=== PATIENT | female | born 1990 | race Caucasian/White ===

== ENCOUNTER → 2018-12-31 13:40 | Outpatient (CLI) | payer SELFPAY ==
[2018-10-12 11:31] VITALS: BMI 25.7
[2018-12-31 17:26] LABS: Chlamydia Trachomatis by PCR Negative (Negative); Neisserai gonorrhoeae by PCR Negative (Negative); Probe Check PASS; Sample Adequacy Control PASS; Specimen Processing Control PASS
[2019-01-05 10:10] LABS: HPV Reflexed? NOT INDICATED
== END ==
PROVIDERS: Visit Provider Obstetrics & Gynecology
DX: Z12.4 Encounter for screening for malignant neoplasm of cervix (principal); Z11.3 Encounter for screening for infections with a predominantly sexual mode of transmission
CPT/HCPCS: 87491; 87591; 87624; 88175; G0145

== ENCOUNTER → 2019-01-14 | Outpatient (CLI) | payer SELFPAY ==
[2018-10-12 11:31] VITALS: BMI 25.7
--- NOTE | 2019-01-14 14:06 | US_ITS ---
STUDY: FIRST TRIMESTER OBSTETRICAL ULTRASOUND REASON FOR EXAM: Female, 28 years old. Gestational age LMP: TECHNIQUE: Transabdominal TECHNICAL QUALITY: Adequate. PRIOR ULTRASOUND: None. FINDINGS: There is visualization of a single gestational sac in a normal intrauterine position. The mean sac diameter (MSD) measures 3.43 cm, indicating an estimated gestational age (EGA) of 8 weeks, 6 days. The gestational sac shape is within normal limits. There is a visualized yolk sac. The yolk sac measures 5.8 mm. The placenta is non-visualized. There is visualization of a live embryo. The crown-rump length (CRL) measures 2 cm, indicating an estimated gestational age (EGA) of 8 weeks, 5 days. There is demonstrated cardiac activity with a heart rate of 169 bpm. The estimated gestation age (EGA) by LMP is 8 weeks, 1 days. The estimated date of delivery (DAMON) by LMP is August 25, 2019. The estimated gestation age (EGA) by US is 8 weeks, 6 days. The estimated date of delivery (DAMON) by US is August 20, 2019. The uterus measures 9.9 x 7.4 x 6.4 cm. There is no demonstrated uterine fibroid. The cervix is closed. Small subchorionic hemorrhage measuring 1.5 x 1.3 x 1.1 cm The right ovary measures 4.2 x 2.1 x 1.9 cm. There is no right ovarian cyst. There is no visualized right adnexal mass or complex lesion. The left ovary measures 3.2 x 2.8 x 3.2 cm. There is no left ovarian cyst. There is no visualized left adnexal mass or complex lesion. There is no fluid in the cul de sac. US/Init OB < 14Wks US IMPRESSION: Viable intrauterine gestation approximately 8-9 weeks gestational age. Small subchorionic hemorrhage Electronically Signed: Nilo Cortés MD at 16:08 EDT , Service support ,
== END | disposition home or self-care (01) ==
PROVIDERS: Family Provider Internal Medicine; PCP Internal Medicine; Referring Provider Obstetrics & Gynecology; Visit Provider Obstetrics & Gynecology
DX: Z34.81 Encounter for supervision of other normal pregnancy, first trimester (principal); N91.2 Amenorrhea, unspecified
CPT/HCPCS: 76801

== ENCOUNTER → 2019-02-18 | Outpatient (CLI) | payer SELFPAY ==
[2018-10-12 11:31] VITALS: BMI 25.7
[2019-02-18 10:45] LABS: Absolute Lymphocyte Count 1.66 X10^3/ul (0.83-4.51); Basophil# 0.01 X10^3/uL; Basophil% 0.1 % (0-1); Eosinophil# 0.08 X10^3/uL; Hematocrit 36.9 % (37-47); Hemoglobin 12.6 g/dl (12.0-15.0); Lymphocyte # 1.66 X10^3/ul (4.0); Lymphocyte % 20.3 % (19-41); Mean Corp Hgb Conc 34.1 g/gl (32-36); Mean Corpuscular Hgb 28.7 pg (27.0-32.0); Mean Corpuscular Volume 84.1 fL (81-99); Mean Platelet Vol. 9.6 fl (6.2-12.0); Monocyte# 0.41 X10^3/uL; Neutrophil % 73.4 % (47-70); Platelet Count 223 K/mm3 (150-450); RBC Distribution Width CV 13.3 % (11.6-14.6); RBC Distribution Width SD 40.7 fl (35.1-43.9); Red Blood Count 4.39 M/mm3 (4.2-5.4); White Blood Count 8.2 K/mm3 (4.4-11.0)
[2019-02-18 10:47] LABS: POSITIVE COUNT NO; POSITIVE DIFFERENTIAL NO; POSITIVE MORPHOLOGY NO
[2019-02-18 10:48] LABS: Color, Urine Yellow (Yellow); Glucose, Dipstick Normal (Normal); Ketone-Dipstick Negative (Negative); Leukocyte Esterase-Dipstick Negative /ul (Negative); Nitrite-Dipstick Negative (Negative); Occult Blood-Urine Negative /ul (Negative); Protein-Dipstick Negative (Negative); Urine Bilirubin Dipstick Negative (Negative); Urine Clarity Sl. Cloudy (Clear); Urine Urobilinogen Normal (Normal)
[2019-02-18 10:49] LABS: Color, Urine Yellow (Yellow); Glucose, Dipstick Normal (Normal); Ketone-Dipstick Negative (Negative); Leukocyte Esterase-Dipstick Negative /ul (Negative); Nitrite-Dipstick Negative (Negative); Occult Blood-Urine Negative /ul (Negative); Protein-Dipstick Negative (Negative); Urine Bilirubin Dipstick Negative (Negative); Urine Clarity Sl. Cloudy (Clear); Urine Urobilinogen Normal (Normal)
[2019-02-18 10:50] LABS: Basophil% 0.1 % (0-1); Hematocrit 36.9 % (37-47); Hemoglobin 12.6 g/dl (12.0-15.0); Lymphocyte % 20.3 % (19-41); Mean Corp Hgb Conc 34.1 g/gl (32-36); Mean Corpuscular Hgb 28.7 pg (27.0-32.0); Mean Corpuscular Volume 84.1 fL (81-99); Mean Platelet Vol. 9.6 fl (6.2-12.0); Neutrophil % 73.4 % (47-70); Platelet Count 223 K/mm3 (150-450); RBC Distribution Width CV 13.3 % (11.6-14.6); RBC Distribution Width SD 40.7 fl (35.1-43.9); Red Blood Count 4.39 M/mm3 (4.2-5.4); White Blood Count 8.2 K/mm3 (4.4-11.0)
[2019-02-18 10:51] LABS: Basophil# 0.01 X10^3/uL; Eosinophil# 0.08 X10^3/uL; Monocyte# 0.41 X10^3/uL
[2019-02-18 11:53] LABS: HIV - WCH Non-Reactive (Nonreactive); Rubella IgG 41.5 IU/mL
[2019-02-18 13:26] LABS: ALB/GLOB Ratio 0.7 RATIO (0.9-2.4); AST(SGOT) 18 U/L (15-37); Alanine Aminotransfer ALT/SGPT 18 U/L (13-56); Alkaline Phosphatase 36 U/L (45-117); Anion Gap 10 (5-15); BUN 12 mg/dL (7-18); BUN/Creat Ratio 19.7 RATIO (10-20); Bilirubin, Direct 0.08 mg/dL (0.00-0.30); Calcium,Total 8.4 mg/dL (8.5-10.1); Chloride 106 mmol/L (98-107); Cholesterol 200 mg/dL (200); Creatinine, Serum 0.61 mg/dL (0.55-1.02); EST Glomerular Filtration Rate 124 mL/min (>60); Est Glom Filt Rate - Afr Amer 150 mL/min (>60); Globulin 4.1 g/dL (2.2-4.2); Glucose 77 mg/dL (74-106); High Density Lipoprotein 91 mg/dL; LDH 190 U/L (84-246); Phosphorus 3.5 mg/dL (2.5-4.9); Protein, Total 7.1 g/dL (6.4-8.2); Sodium Level 139 mmol/L (136-145); Triglycerides 71 mg/dL; Uric Acid 3.5 mg/dL (2.6-6.0); Very Low Density Lipoprotein 14 mg/dL (5-40)
[2019-02-19 16:52] LABS: HEPATITIS B SURFACE AG Negative (Negative); Hep C Antibodies <0.1 s/co ratio (0.0-0.9)
[2019-02-20 01:45] LABS: Prenatal RPR NONREACTIVE (NONREACTIVE)
== END | disposition home or self-care (01) ==
PROVIDERS: Family Provider Internal Medicine; PCP Internal Medicine; Referring Provider Obstetrics & Gynecology; Visit Provider Obstetrics & Gynecology
DX: Z34.82 Encounter for supervision of other normal pregnancy, second trimester (principal); N39.0 Urinary tract infection, site not specified
CPT/HCPCS: 36415; 81002; 84443; 85025; 86703; 86762; 86803; 87077; 87086; 87088; 87186; 87340

== ENCOUNTER → 2019-05-29 10:00 | Outpatient (CLI) | payer SELFPAY ==
[2019-05-05 10:16] VITALS: BMI 25.7
[2019-05-29 10:51] LABS: Hematocrit 35.2 % (37-47); Hemoglobin 11.7 g/dL (12.0-15.0); Mean Corp Hgb Conc 33.2 g/dL (32-36); Mean Corpuscular Hgb 29.1 pg (27.0-32.0); Mean Corpuscular Volume 87.6 fL (81-99); Mean Platelet Vol. 10.3 fl (6.2-12.0); Platelet Count 226 K/mm3 (150-450); RBC Distribution Width CV 12.2 % (11.6-14.6); RBC Distribution Width SD 38.8 fl (35.1-43.9); Red Blood Count 4.02 M/mm3 (4.2-5.4); White Blood Count 8.7 K/mm3 (4.4-11.0)
[2019-05-29 11:15] LABS: Glucose Challenge Gest 1H 50g 109 mg/dL (70-140)
== END ==
PROVIDERS: Visit Provider Obstetrics & Gynecology
DX: Z34.83 Encounter for supervision of other normal pregnancy, third trimester (principal)
CPT/HCPCS: 36415; 82950; 85027; 86850

== ENCOUNTER → 2019-06-18 08:40 | Outpatient (CLI) | payer SELFPAY ==
[2019-05-05 10:16] VITALS: BMI 25.7
[2019-06-18 10:08] LABS: Homocysteine 3.6 umol/L (3.2-10.7)
== END ==
PROVIDERS: Visit Provider Obstetrics & Gynecology
DX: O99.419 Diseases of the circulatory system complicating pregnancy, unspecified trimester (principal); I87.1 Compression of vein; Z3A.00 Weeks of gestation of pregnancy not specified
CPT/HCPCS: 36415; 81240; 81241; 83090

== ENCOUNTER → 2019-07-16 14:00 | Outpatient (CLI) | payer SELFPAY ==
[2019-05-05 10:16] VITALS: BMI 25.7
--- NOTE | 2019-07-16 14:04 | VDLE_ITS ---
Reason For Study: R/O DVT Procedure LEFT Exam performed in department. GSV is normal. A preliminary report was called and/or faxed CFV is compressible, spontaneous, phasic, to [place]. competent, and demonstrates normal augmentation. FV is compressible, spontaneous, phasic, competent and demonstrates normal augmentation. POP V is compressible, spontaneous, phasic, competent and demonstrates normal augmentation. T/P Trunk is compressible. PTV is compressible. LT PerV is compressible. Interpretation Summary Deep veins of the left lower extremity are patent and compressible segmentally. There is no evidence of left lower extremity deep vein thrombosis. Valvular competence appears intact within the proximal deep venous system on the left . The left great saphenous vein appears patent and compressible segmentally. Ordering Physician: Jas Kemp Referring Physician: Allegra Potts M.D. Performed By: Luba Grimes RVT
== END ==
PROVIDERS: Family Provider Internal Medicine; PCP Internal Medicine; Referring Provider Obstetrics & Gynecology; Visit Provider Obstetrics & Gynecology
DX: Z34.83 Encounter for supervision of other normal pregnancy, third trimester (principal); M79.605 Pain in left leg
CPT/HCPCS: 93971

== ENCOUNTER 2019-08-21 22:44 | Inpatient (IN) | payer SELFPAY ==
[2019-05-05 10:16] VITALS: BMI 25.7
[2019-08-21 22:19] VITALS: BMI 31.5
[2019-08-21 22:40] LABS: ROM Internal Control Test YES-OK TO RESULT pt. (Internal QC)
[2019-08-21 22:41] LABS: ROM Patient Test POSITIVE (Negative)
--- NOTE | 2019-08-21 22:51 | HP.PCM_ITS ---
History and Physical Date of Admission: 08/21/19 [facility] [place] [facility] - H[facility]ORY AND PHYSICAL (08/21/2019) Name: NEGRITA NOLENIQUE OB Physician: PETER Windsor's Physician: PED HEALTH TEACHER ...................................................................... : 1990 Age: 29 Address: [address] [place] [address] Phone: H) [phone] (O) [phone] Insurance Carrier: Emergency Contact: SOLOMON PAYNE [phone] ...................................................................... Annabelle is a 29yo at 40w1d gestation by 8w6d US who presents to unit this evening c/o SROM of clear fluid at 1730; contractions started at 1900; she denies VB and states active FM; she is GBS positive in urine at beginning of ; she reports an anaphylactic reaction to amoxicillin as a child; blood type is O negative and she received Rhogam at 28 weeks; has been remarkable for May Thurner syndrome, placing her at approx 2-3% increased risk of DVT in ; she declined recommended anticoagulation therapy with Lovenox or heparin, but has been taking 81mg asa with this ; this evening she voices concerns that her first baby was born OP, after an extended time of , and she experienced a second degree tear; after discussion and being informed that approximately 80 percent of women will experience perineal lacerations with delivery and modalities that can be used to help prevent this, she voices a preference for a small episiotomy per this provider's judgement should the situation recur; she does understand that an episiotomy, if performed, will result in a controlled 2nd degree laceration; she initially wanted to avoid an epidural with this labor, but after extensive discussion and recommendation by this provide for Pitocin augmentation r/t GBS positive status with ruptured membranes, she agrees to slow Pitocin augmentation and may reconsider epidural. Final DAMON: 08/20/19 By Ultrasound: 8 weeks 6 days PARITY: (G-Total Pregnancies P-Fullterm,Premature,Induced AB,Spont AB, Ectopics, Multiple,Living) DAMON CONFIRMATION: By LMP: 11/18/18 Final DAMON: 08/20/19 BLOOD TYPE: AFP: 1 HR PG: GBS: Rublla titer (>10 immune)-- Hepatatis B jonathon AG-- CULTURES:-- Negative OB PROBLEM LIST: ALLERGIC to AMOXICILLIN and Shellfish Declines msAFP and CF testing GBS positive UTI this ABX in labor May Thurner syndrome. MFM consultation 2-3% chance DVT in . 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 O NEGATIVE RhoGAM at 28-29 wks Prefers NO epidural, if possible Pushed x 3-3/4 hrs with first delivery Saw Dr Richards for eval of L inguinal hernia Dr Richards unable to detect hernia... Significant varicosities. No intervention in Plans f/u with Dr Arnold re varicosities after . ALLERGIES: Amoxicillin Severe swelling Amoxicillin Swelling (non-specific) Erythromycin Anaphylaxis Shellfish Explosive diarrhea Shellfish Derived C. difficile toxin diarrhea MEDICATIONS: aspirin 81 mg chewable tablet 1 po daily for DVT prevention until 6 wk pp. 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[employer] Illicit Drug Use - denies use of street drugs Sexual Activity - Residence - lives with Place of - [place], [place] Hours Worked - 25 WK Spouse-Sig Other Name - Solomon Spouse-Sig Other Occupation - construction Spouse-Sig Other Phone No - [phone] Children Name(s) - Shayy '17 PRIOR DELIVERY HISTORY DEL DATE GEST LAB WT LB WT OZ TYPE ANES LABOR TX 19 Jun 09 40 12 6 12 Vacuu Epidural No ANTEPARTUM FLOW CHART VISIT RTC FU F F IA U U DATE WK MD WKS HT PN HR M SS BP ED WT IA GL D EF ST __ ____ ___ __ __ ___ __ __ __ ___ __ __ __ ___ __ Jul JMW 6 37 V + + 112/66 sl 183 - - S Jul JMW 1 38 V + + 112/64 sl 181 - - S Jul JMW 1 37 + + 108/68 sl 181 - - 2 50 -2 Jul JMW 1 36 + + 122/74 - 181 - - Jun JMW 1 35 V + + 116/70 tr 177 - - 1 50 -2 Jun JMW 1 35 + + 106/68 sl 178 - - 08 Jun ELB 2 32 - + + 110/80 0 175 - - 24 May 30 JMW 2 32 + + 114/70 tr 173 - - 06 Jun 20 ELB 2 28 - + + 102/68 tr 166 tr - May 15 JMW 5 24 + + 122/60 0 163 - - 05 Apr 10 JMW 4 20 + + 90/70 0 155 - - Mar 08 JMW 4 16 + ? 122/74 0 153 - - February 02 JMW 4 13 + + 100/80 0 148 - - ANTEPARTUM NOTE(S): Aug 18 2019: Doing Well Aug 12 2019: Ctxs-occas, Good FM Aug 04 2019: Ctxs-occas, Good FM Jul 30 2019: doing well, GBS was positive in urine, declines cervix check Jul 23 2019: Feeling Well,Good FM LARC Form signed Jul 14 2019: see progress note, check right calf doppler Jun 30 2019: feeling well. Jun 16 2019: Feeling Well,Good FM, check clotting labs May 29 2019: CBC,OGCT,Antibody Today,Rhogam Today Apr 28 2019: Glucola/Instructions Given,Good FM Mar 27 2019: feeling well. Questions about inguinal hernia. Mar 11 2019: Declines AFP,Feels Well Feb 18 2019: see note COMPREHENSIVE ANTEPARTUM NOTE(S): Aug 18 2019: GBS Positive on urine culture this . no vaginal culture GBS done. Plan tx in labor. EB Aug 18 2019: As per Dr Kemp Annabelle is sched for Induction with Pit and AROM 08/24/19 at [facility] per Dr Kemp at 7am. Procedure reviewed and consents signed and faxed with antepartum chart. Pt has pre-registered and will call 2hrs prior to induction to verify. JT Aug 13 2019: Annabelle calling to ask many questions about an induction. States this was discussed at her last visit w/you. All questions answered. Advised to pre-register, so this is already done. Asking if she needs an appt prior to scheduling this? YES, Dr Kemp will review his choice of induction and will discuss all at that visit, will need a vag. exam, consent needs signed, and will need scheduled then in OB. She has an appt to see you on Saturday. Jul 14 2019: Pt presents for her PNV. She notes pain in her left calf for the past3-4days and d/t her hx of severe vericosities in her Lt leg she is concerned about a clot. Order given for a Left Leg doppler for [facility]. JT Jun 30 2019: Inherited thrombophilia panel: No Factor V mutation. No factor II mutation. positive for MERON-1 Gene Polymorphism Homocysteine level WNL. Prothrombin activity WNL. she is on baby ASA daily. [facility] consult obtained prior. Results to be sent to [facility] re whether or not to start Lovenox. Continues baby ASA daily RhNeg and asking if her daughter's rh positive blood type caused any of this. Advised not RTO in 2 wk fo PNV EB Jun 01 2019: Late entry from date of her 28 wk labs: pt with presumed hernia at L groin but actually went away after . Dx by Dr. Richards with May Thurner's Syndrome. which is a varicose v at the iliac crest due to and pressure at the groin. She is wondering if this puts her at higher risk of DVT? Advised will check into this, but no problems with her prior / delivery. Reviewed s/sx of DVT with Annabelle. EB [facility] online information: May-Thurner syndrome (MTS) is caused when the left iliac vein is compressed by the right iliac artery, which increases the risk of deep vein thrombosis (DVT) in the left extremity. DVT is a blood clot that may partially or completely block blood flow through the vein. Refer to [facility]. May 29 2019: Annabelle presents here today for PNV with CBC,OGCT and Antibody Screen drawn today. Rhogam given via undersigned without problems. Reports she continues with bulging varicosities mostly on the (L) leg and vaginal area. JOHN May 05 2019: Saw Dr Richards for eval of L inguinal hernia. Dr Richards unable to detect hernia... But pt with significant varicosities. No intervention in Plans f/u with Dr Arnold re varicosities after . EB Feb 18 2019: Annabelle is being seen for PNV. Pt is concerned she has a sinus infection. Pt states sinus issues have been going around her family, as well as her daughter possibly having infection. She states she has green/yellow snot when she wakes up and goes to bed and wakes up with sore throat. She was wondeirng she needed to go to PCP. As well as having pressure in vagina which is same feeling before getting . Long dip shows trs blood, 6.5 pH, specific gravity 1.025, all others negative. C and S added to NOB urine. AM Feb 18 2019: Annabelle is here for her NOB visit at 13 w 6 d, she is a with an DAMON of 08/20/2019. PNV with Dr. Kemp completed prior to NOB visit, and her labs were collected this morning. Office practice patterns reviewed. Emergencies/danger signs to report, round ligament pain, reporting s/s of a UTI, and common OTC medications approved/no approved of use during reviewed. She and her , Solomon, have a young daughter at home who will be 2 in May; her daughter was delivered with vac assist after a second stage of 3-3/4 hrs. GDM - Glyburide with first . Past history updated. Delivery at [facility] Is planned, she sates that she prefers NOT to have an epidural, but is not adverse to having one as needed, she will breastfeed. States that she is feeling pretty well overall, and that nausea comes and goes. Reviewed measure sthat may help nausea, including small frequent meals with protein included throughout the day, and adequate water hydration of at least one gallon per 24 hrs. She takes an OTC vitamin that contains DHA, and tolerates this well. Annabelle is a non-smoker, and denies use of drugs or ETOH. Genetic Screening form completed. MSAFP and CF testing declined, consent signed as such. She has a hx of a L5 fx in 2016. She has Psoriasis, and uses Hydrocortisone cream prn for same. She works out regularly several times a week, reviewed guidelines for exercise during . Kegel exercises reviewed. Lifting restrictions discussed. Dietary and water needs reinforced, including recommended weight gain, caloric needs, limiting empty calories, and limiting caffeine to one cup a day. Printed guide for food safety during provided with review. Annabelle states that she understands all information provided during NOB visit, and has no questions following same. AW New Apr 11 2019: GC and chlamydia NEG. EB Dec 31 2018: Annabelle presents here today for Missed Menses appointment. 28 y.o. G 2 P 1 non-smoker with regular menses and LMP of 11-18-18 lasting her average of 3-4 days with positive UPT today in our Office. Presents at 6 weeks 2 days with an approximate DAMON of 08-25-19. Denies spotting/bleeding thus far in . Reports having nausea and tender breasts. History of all normal pap screenings since 2011 with last in 2017. Medication list up-dated and currently taking an OTC Vitamin with [employer] noted. JOHN Dec 31 2019: ok REVIEW OF SYSTEMS: GENERAL - Denies fever, or chills SKIN - Denies rash, new skin lesions, or change in moles EYES - Denies blurred vision, or change in visual acuity EARS - Denies ear pain, or difficulty hearing NOSE - Denies nasal congestion, discharge, or bleeding MOUTH - Denies sore throat, or difficulty swallowing NECK - Denies pain or swelling RESPIRATORY - Denies shortness of breath, cough, wheezing CARDIOVASCULAR - Denies palpitations, chest pain, orthopnea, PND, peripheral edema, syncope or claudication GASTROINTESTINAL - Denies nausea, vomiting, diarrhea, constipation, Denies abdominal pain, melena and or bright red blood GENITOURINARY - Denies dysuria, frequency of urination, urgency, or hesitancy MUSCULOSKELETAL - Denies joint or muscle pain, or back pain NEUROLOGICAL - Denies localized numbness, weakness, or tingling PSYCHIATRIC - Denies depression, anxiety, substance abuse or suicide attempts ENDOCRINE - Denies heat or cold intolerance, weight loss or gain, increasing thirst HEMATO-IMMUNOLOGIC - Denies easy bruising, bleeding, oral ulcerations or recurrent infections GENETICS SCREENING: Age 35+ years: No Thalassemia: No Neural Tube Defect: No Down Syndrome: No KADEN-SACHS: No Sickle Cell Disease: No Hemophilia: No Musc. Dystrophy: No Cystic Fibrosis: No-declines screening Ray Chorea: No Mental Retardation: No Fragile X: No Other genetic: No Other defects: No SABs/still births: No Drugs since LMP: No INFECTION HISTORY: High risk AIDS: No High risk Hepatitis: No Exposed to TB: No Exposed to Herpes: No Rash/viral illness since LMP: No History of STD: No MENSTRUAL HISTORY: *Menses Amount/Duration: 4-5 DAYSMenses Regularity: RegularFrequency: 28Menarche (Age Onset): 11* PAST SUMMARY: PARITY: 1. Total Pregnancies............ 2 2. Full Term Pregnancies........ 1 3. Premature.................... 0 4. Abortions - Induced.......... 0 5. Abortions - Spontaneous...... 0 6. Ectopics..................... 0 7. Multiple Births.............. 0 8. Living Children.............. 1 PAST #1: Date of :.................. 06/11/17 Gestation Weeks:................ 40 Length of labor(hours):......... 12 Sex:............................ F Weight-lbs:............... 6 Weight-oz:................ 12 Type of Delivery:............... Vacuum Type of Anesthesia:............. Epidural Place of Delivery:.............. [facility] Treatment of Labor?:.... No Comment: PIT AUG, 3 H 45 M 2ND STAGE Labs for : ANNABELLE NOLEN since 11/23/2018 ORDER DATEIN DESCRIPTION VALUE UNITS RANGE A+ COMMENT (ROM) RUPTURE OF MEMBRANES 08/21/19 NOTE Original Ordering Provider: Velasquez Kemp ROM POSITIVE Negative H Amniotic fluid present indicates rupture of Membranes. RESULTS CALLED TO HUMERA RUVALCABA 08/21/19 2240 Breanna Otero. REPORT READ BACK BY MEB. VENOUS DUPLEX LOWER EXTREMITY 07/16/19 [facility] [address] [place] [address] Venous Duplex US, Unilateral 07/16/19 1512 MR#: [id number] Acct: [id number] Name: ANNABELLE NOLEN Rep #: [id number] : 1990 28 From: Mauricio Arnold MD Attending Dr: Velasquez Kemp MD Status: REG CLI Ordering Dr: Velasquez Kemp MD Date: 07/16/19 Location: [facility] Sex: F C Admitted: w Reason For Study: R/O DVT Procedure LEFT Exam performed in department. GSV is normal. A preliminary report was called and/or faxed CFV is compressible, spontaneous, phasic, to Justo. competent, and demonstrates normal augmentation. FV is compressible, spontaneous, phasic, competent and demonstrates normal augmentation. POP V is compressible, spontaneous, phasic, competent and demonstrates normal augmentation. T/P Trunk is compressible. PTV is compressible. LT PerV is compressible. Interpretation Summary Deep veins of the left lower extremity are patent and compressible segmentally. There is no evidence of left lower extremity deep vein thrombosis. Valvular competence appears intact within the proximal deep venous system on the left . The left great saphenous vein appears patent and compressible segmentally. Ordering Physician: Velasquez Kemp Referring Physician: Allegra Potts M.D. Performed By: Luba Grimes Melvi w 07/16/191941 Date Mauricio Arnold MD CC: Velasquez Kemp MD; Allegra Potts DO Date Dictated: 07/16/191511 Date Transcribed: 07/16/191941 Loader Engineer: Signed Reviewed by VELASQUEZ FACT V LEIDEN MUTATION 06/18/19 NOTE Original Ordering Provider: Elsie Love FACTOR V LEIDEN . Result: Negative (no mutation found) Factor V Leiden is a specific mutation (R506Q) in the factor V gene that is associated with an increased risk of venous thrombosis. Factor V Leiden is more resistant to inactivation by activated protein C. As a result, factor V persists in the circulation leading to a mild hyper- coagulable state. The Leiden mutation accounts for 90% - 95% of APC resistance. Factor V Leiden has been reported in patients with deep vein thrombosis, pulmonary embolus, central retinal vein occlusion, cerebral sinus thrombosis and hepatic vein thrombosis. Other risk factors to be considered in the workup for venous thrombosis include the [id number] mutation in the factor II (prothrombin) gene, protein S and C deficiency, and antithrombin deficiencies. Anticardiolipin antibody and lupus anticoagulant analysis may be appropriate for certain patients, as well as homocysteine levels. Contact your local [facility] for information on how to order additional testing if desired. Genetic counselors are available for health care providers to discuss results at [phone] Methodology: DNA analysis of the Factor V gene was performed by allele- specific PCR. The diagnostic sensitivity and specificity is >99% for both. Molecular-based testing is highly accurate, but as in any laboratory test, diagnostic errors may occur. All test results must be combined with clinical information for the most accurate interpretation. This test was developed and its performance characteristics determined by [facility]. It has not been cleared or approved by the Food and Drug Administration. References: Marissa Mack (1996). Clin Lab Med 16:169-186. Queenie Tran, PhD, [facility] Alexandra Mills, PhD, [facility] Tameka Dorantes M.S., PhD, [facility] Margaret Roberson, PhD, [facility] Bridgette Finley, PhD, FAC Abhay Castro PhD, [facility] Reviewed by ELSIE FACTOR II, DNA ANALYSIS 06/18/19 NOTE Original Ordering Provider: Elsie Love FACTOR II,DNA . NEGATIVE No mutation identified. Comment: A point mutation ([id number]) in the factor II (prothrombin) gene is the second most common cause of inherited thrombophilia. The incidence of this mutation in the [place] population is about 2% and in the population it is approximately 0.5%. This mutation is rare in the and population. Being heterozygous for a prothrombin mutation increases the risk for developing venous thrombosis about 2 to 3 times above the general population risk. Being homozygous for the prothrombin gene mutation increases the relative risk for venous thrombosis further, although it is not yet known how much further the risk is increased. In women heterozygous for the prothrombin gene mutation, the use of estrogen containing oral contraceptives increases the relative risk of venous thrombosis about 16 times and the risk of developing cerebral thrombosis is also significantly increased. In the prothrombin gene mutation increases risk for venous thrombosis and may increase risk for stillbirth, placental abruption, pre-eclampsia and growth restriction. If the patient possesses two or more congenital or acquired thrombophilic risk factors, the risk for thrombosis may rise to more than the sum of the risk ratios for the individual mutations. This assay detects only the prothrombin [id number] mutation and does not measure genetic abnormalities elsewhere in the genome. Other thrombotic risk factors may be pursued through systematic clinical laboratory analysis. These factors include the R506Q (Leiden) mutation in the Factor V gene, plasma homocysteine levels, as well as testing for deficiencies of antithrombin III, protein C and protein S. Genetic Counselors are available for health care providers to discuss results at [phone]). Methodology: DNA analysis of the Factor II gene was performed by PCR amplification followed by restriction analysis. The diagnostic sensitivity is >99% for both. All the tests must be combined with clinical information for the most accurate interpretation. Molecular-based testing is highly accurate, but as in any laboratory test, diagnostic errors may occur. This test was developed and its performance characteristics determined by [facility]. It has not been cleared or approved by the Food and Drug Administration. Deepikat SR, et al. Blood. 1996; 88:0518-9124. Soy SOSA. Circulation. 2004; 110:e15-e18. Angela I, et al. Arterioscler Thromb Vasc Biol. 1999; 19:700-703. Queenie Tran, PhD, FAC Alexandra Mills, PhD, FAC Cynthia RandhawaSEvangelist, PhD, FAC Margaret Roberson, PhD, FAC Bridgette Finley, PhD, [facility] Abhay Castro, PhD, [facility] Performed at: [facility] [place], [place] [id number] Line Staker: Miki Chase MD, Phone: [phone] Reviewed by ELSIE [facility] PROCEDURE 2 06/18/19 NOTE Original Ordering Provider: Elsie Love [facility] LAB TEST 2 TEST RESULT UNITS REF INTERVAL MERON-1 Gene Polymorphism MERON-1 Locus 4G/5G Polymorphism Patient DNA was evaluated for the MERON-1 4G/5G promoter polymorphism, which is a single base pair guanine (4G/5G) deletion/insertion polymorphism, using polymerase chain reaction (PCR) technology and restriction fragment length polymorphism (RFLP). 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 Interpretation This individual has one copy of the 4G allele and one copy of the 5G allele, also known as the 4G/5G genotype of the plasminogen activator inhibitor type 1 (MERON-1) gene. The 4G/5G genotype is associated with the intermediate MERON-1 activity and antigen levels compared to those individuals that have either the 4G/4G genotype with the highest MERON levels or 5G/5G genotype with the lowest MERON levels. Elevated MERON-1 levels are associated with an increased risk of coronary artery disease, venous thromboembolic disease and possibly complications of such as recurrent . Comments Simultaneous Risks: If a patient possesses two or more congenital or acquired risk factors, the risk of disease may rise to more than the sum of the risk ratios for the individual risk factors. For instance, a combination of the 4G/4G genotype and the insulin resistance syndrome may confer an increase in cardiovascular disease risk over that conferred by the presence of an isolated MERON-1 4G/4G polymorphism. Recommendations for Genetic Counseling: The MERON-1 4G allele is an inherited characteristic. If the polymorphism is present in a heterozygous or homozygous fashion, we recommend that the patient and their family consider genetic counseling to obtain additional information on inheritance and to identify other family members at risk. Testing Characteristics: Genetic testing by PCR provides exceptionally high sensitivity and specificity. Incorrect genotyping results can be caused by rare polymorphisms in primer binding sites and to misidentification of specimens by collectors or laboratory personnel. This assay analyzes only the MERON 4G/5G locus and does not measure genetic abnormalities elsewhere in the genome. This test was developed and its performance characteristics determined by [facility]. It has not been cleared or approved by the Food and Drug Administration. References: Jamin Lynch. Thromb Haemost. 2003;90:1061.; Varinder. Clin Chem. 2003;49:1081.; Wm et al. NEJM. 2000;342:1792.; Myra M et al. Arterioscl Thromb and Vasc Bio. 1998;18:152. TESTING PERFORMED AT [facility]. ORIGINAL REPORT ON FILE IN LAB CONTAINS ADDITIONAL TEST SITE INFORMATION. Reviewed by ELSIE [facility] LAB PROCEDURE 06/18/19 NOTE Original Ordering Provider: Elsie TRAN LAB TEST TEST RESULT LIMITS Antithrombin Activity 97 % 75 - 135 Direct Xa inhibitor anticoagulants such as rivaroxaban, apixaban and edoxaban will lead to spuriously elevated antithrombin activity levels possibly masking a deficiency. [facility]. ORIGINAL REPORT ON FILE IN LAB CONTAINS ADDITIONAL TEST SITE INFORMATION. Reviewed by ELSIE HOMOCYSTEINE 06/18/19 NOTE Original Ordering Provider: Elsie Love HOMOCYSTEINE 3.6 umol/L 3.2-10.7 Reviewed by ELSIE ANTIBODY SCREEN 05/29/19 [facility]~[address] [place], [address]~ ANTIBODY SCREEN NEGATIVE N Reviewed by VELASQUEZ GLUCOSE CHALLENGE GEST 1H 50G 05/29/19 NOTE Original Ordering Provider: Velasquez Kemp GLU GEST 50G 1H 109 mg/dL 70-140 Reviewed by VELASQUEZ CBC-COMPLETE BLOOD CNT NO DIFF 05/29/19 NOTE Original Ordering Provider: Velasquez Kemp WBC 8.7 K/mm3 4.4-11.0 RBC 4.02 M/mm3 4.2-5.4 L HGB 11.7 g/dL 12.0-15.0 L HCT 35.2 % 37-47 L MCV 87.6 fL 81-99 MCH 29.1 pg 27.0-32.0 MCHC 33.2 g/dL 32-36 RDW CV 12.2 % 11.6-14.6 RDW SDw 38.8 fl 35.1-43.9 PLT 226 K/mm3 150-450 MPV 10.3 fl 6.2-12.0 Reviewed by VELASQUEZ SURGERY VISIT REPORT 05/05/19 [facility] [address] [place], [place] [address] OFFICE VISIT Date of Service: 05/05/19 MR#: [id number] Acct: [id number] Name: ANNABELLE NOLEN Rep #: [id number] : 1990 Provider: Zen Richards MD Age/Sex: 28/F Location: [facility] Status: Signed Intake Vital Signs05/05/19 Body Mass Index (BMI) 25.7 05/05/19 Blood Pressure 124/75 H 05/05/19 Blood Pressure Location Rt brachial Intake Visit Reasons: l inguinal hernia/wants to discuss/ now Chief Complaint: Sinus Care Specialist Required: No Is patient in pain?: No Allergies amoxicillin Allergy (Verified 05/05/19 10:14) Swelling Medications w [id number]-wdyr-[id number]-omega 3-fat com #1 27 mg-1 mg-300 mg capsule cap PO DAILY cap 05/05/19 [History] PFSH Medical History Severe headache (Acute) Severe headache (Acute) Surgical History History of tonsillectomy (Acute) Family History (Updated 05/05/19 @ 10:13 by Marga Miller) Grandmother Cancer skin Grandfather Diabetes CVA (cerebral vascular accident) Father Heart disease Hypertension Social History (Updated 05/05/19 @ 10:39 by Zen Richards MD) Smoking Status: Never smoker alcohol intake: never substance use type: does not use w HPI HPI HPI: ANNABELLE NOLEN, is a 28 F who presents to the office today for surgical consultation regarding a suspected left inguinal hernia. She has been evaluated by Dr. Velasquez Kemp and Dr King although she is 25 weeks was felt that getting surgical consultation at this stage would be appropriate. This is her second . She states that she first noticed it during her first and immediately after delivery it seemed to resolve. w She provides additional information that she has always had more exuberant varicosities of her left lower extremity. She has never had DVT. She is not on an anticoagulant. Only previous surgery was tonsillectomy and adenoidectomy. She does vigorously exercise. She is limiting that to some degree during her . HPI HPI HPI: ANNABELLE NOLEN, is a 28 F who presents to the office today for w ROS General General: No weight change, appetite, fatigue, colon cancer, breast cancer or weakness HEENT HEENT: No difficulty swallowing, eye injury, eye surgery, swollen glands or hoarseness Endo Endocrine: No thyroid disease, diabetes mellitus, thyroid cancer, Hair loss, heat intolerance or cold intolerance Skin Skin: No rash or changing moles Breast Breast: No left breast lump, right breast lump, nipple discharge, breast pain, abnormal mammogram, abnormal US or breast enlargement Musc Musculoskeletal: Yes back problems; no arthritis, rheumatoid arthritis, gout or joint pain Cardio Cardiovascular: No murmur, pacemaker, heart disease, atrial fibrillation, high blood pressure, heart attack, heart stent, palpitations, shortness of breat with exertion or chest pain Psych Psychiatric: No depression, anxiety or hearing voices Resp Respiratory: No shortness of breath, No sleep apnea, No cough, No COPD, No asthma, No emphysema, No wheezing Gastro Gastrointestinal: No abdominal pain, No nausea or vomiting, No diarrhea, No constipation, No blood in stool, Yes acid reflux, Yes hemorrhoids, No ulcers, No gallbladder problem, No black,tarry stools Mario Hematologic: No blood thinners, No blood disorders, No bleeding, No anemia, No blood clots Neuro Neurologic: No system reviewed and no additional complaints, except as docu, No as per HPI, No abnormal walking, No abnormal hearing, No abnormal movements, No abnormal s peech, No behavioral changes, No burning sensations, No confusion, No seizure-like activity, No unsteadiness, No dizziness, No localized weakness, No frequent falls, No headache(s), No lack of coordination, No loss of vision, No memory loss, No numbness, No other visual disturbances, No radiating pain, No restless legs, No sensory deficit, No fainting, No tingling, No tremor(s), No weakness, No other Exam Chest Breast Palpation: No nipple discharge Cardio Heart Sounds: no murmurs GI Other: Patient is gravid with uterus up to the level of the umbilicus. Left groin has a ballotable mass. It is most noticeable with the patient upright. She has significant varicosities of the left vulvar and thigh area When she is supine this area has decompressed. Her inguinal floor to palpation appears solid Assessment AND Plan Problems 1. May-Thurner syndrome I87.1 Plan 28-year-old female who is 25 weeks . I believe that she has symptomatic varicosities of her left lower extremity and by history based upon her presentation involving the left lower extremity I am concerned that she may have May Thurner syndrome. I am not clinically detecting a left inguinal hernia At this point I do not believe that she requires any urgent surgical intervention. I have described my suspicion to her. Leave that she has an inguinal hernia. The patient is very much familiar with Dr. Mauricio Arnold. She plans to follow-up with him and I believe that this would be appropriate. w CC: Dr. King and Dr Velasquez Richards, M.D., F.A.C.S. Medications New: Coding Level of Care Code Off vis,new,level 2 Diagnoses May-Thurner syndrome I87.1 w 05/05/19 1039 Date Zen Richards MD Cosign Signature: Date (if applicable) CC: Flaca King MD; Velasquez Kmep MD Reviewed by ELSIE EMPLOYEE PROFILE 02/18/19 NOTE Original Ordering Provider: EMPLOYEE [facility] GLU 77 mg/dL 74-106 Please note revised GLUCOSE reference range effective 10/25/2017. BUN 12 mg/dL 7-18 CREAT,SERUM 0.61 mg/dL 0.55-1.02 The validity of the calculated GFR AND GFRAA in patients over 70 years has not been determined. Clinical correlation is essential. EST GFR 124 mL/min >60 Non- GFR Calc EST GFR - AA 150 mL/min >60 GFR Calc BUN/CRE 19.7 RATIO 10-20 URIC 3.5 mg/dL 2.6-6.0 The drugs N-Acetylcysteine and Metamizole may falsely depress this assay. T PROT 7.1 g/dL 6.4-8.2 ALB 3.0 g/dL 3.2-5.0 Lw GLOB 4.1 g/dL 2.2-4.2 A/G 0.7 RATIO 0.9-2.4 L CA 8.4 mg/dL 8.5-10.1 L PHOS 3.5 mg/dL 2.5-4.9 AST 18 U/L 15-37 ALK P 36 U/L 45-117 L ALT 18 U/L 13-56 T BILI 0.40 mg/dL 0.20-1.00 D BILI 0.08 mg/dL 0.00-0.30 w CHOL 200 mg/dL 200 <200 mg/dL Desirable 200-240 mg/dL Borderline >240 mg/dL High Risk TRIG 71 mg/dL The drugs N-Acetylcysteine and Metamizole may falsely depress this assay. Serum Triglycerides Reference Interval Normal <150 mg/dL Borderline high 150 - 199 mg/dL High 200 - 499 mg/dL Very High > or = 500 mg/dL NA 139 mmol/L 136-145 K 4.0 mmol/L 3.5-5.1 CL 106 mmol/L 98-107 CO2 23.0 mmol/L 21.0-32.0 GAP 10 5-15 HDL 91 mg/dL The drugs N-Acetylcysteine and Metamizole may falsely depress this assay. Reference Range HDL <40 mg/dL Low HDL Cholesterol HDL >or= 60 mg/dL High HDL Cholesterol CHOL:HDL 2.20 LDL 95 mg/dL 0-130 VLDL 14 mg/dL 5-40 LDH 190 U/L 84-246 Reviewed by VELASQUEZ LOUISE, EMPLOYEE 02/18/19 NOTE Original Ordering Provider: EMPLOYEE HEALTH WBC 8.2 K/mm3 4.4-11.0 RBC 4.39 M/mm3 4.2-5.4 HGB 12.6 g/dl 12.0-15.0 HCT 36.9 % 37-47 L MCV 84.1 fL 81-99 MCH 28.7 pg 27.0-32.0 MCHC 34.1 g/gl 32-36 RDW CV 13.3 % 11.6-14.6 RDW SD 40.7 fl 35.1-43.9 PLT 223 K/mm3 150-450 MPV 9.6 fl 6.2-12.0 NEUT% 73.4 % 47-70 H LY% 20.3 % 19-41 MONO% 5.0 % 0-10 EO% 1.0 % 0-5 BASO% 0.1 % 0-1 IM GRAN % 0.200 % 0.0-0.9 IG% - Immature Granulocytes (promyelocytes, myelocytes and metamyelocytes) > 1% indicates that a LEFT SHIFT is Present. ABSOLUTE NEUT 6.0 X10 3/uL 2.0-7.7 ABSOLUTE LYMPH 1.70 X10 3/ul 0.83-4.51 Reviewed by VELASQUEZ URINALYSIS, EMPLOYEE 02/18/19 NOTE Original Ordering Provider: EMPLOYEE HEALTH COLOR Yellow Yellow CLARITY Sl. Cloudy Clear GLUCOSE, UR Normal mg/dl Normal BILIRUBIN URINE Negative mg/dL Negative KETONE UR Negative mg/dl Negative SP.GR. DIPSTX 1.010 1.002-1.030 PH UR 7.0 5.0 - 8.0 PROT DIPSTX Negative mg/dl Negative UROBILI Normal mg/dl Normal NITRITE UR Negative Negative OCCULT BLOOD-UR Negative /ul Negative LEUK ESTERASE Negative /ul Negative Reviewed by VELASQUEZ CULTURE, URINE 02/18/19 NOTE Original Ordering Provider: Velasquez Kemp PLEASE RUN ON URINE IN MAIN LAB. Urine Culture ORGANISM 1: Streptococcus agalactiae (B) [place] Count 11,000-25,000 Streptococcus agalactiae (B): REACTION Ampicillin $ <=0.25 S Benzylpenicillin NF <=0.06 S Ceftriaxone $ <=0.12 S Clindamycin $$ <=0.25 S Inducable Clindamycin Resistan NEG Linezolid $$$$ <=2 S Vancomycin $ 0.5 S (NF) indicates non-formulary drug at [facility]. Approval by Infectious Disease Specialist required before non-formulary drugs may be ordered and/or dispensed. * CLSI guidelines does not recommend testing of cephalosporins. This interpretation is deduced from Beta-lactam/penicillin results. Reviewed by VELASQUEZ Reviewed by VELASQUEZ RPRw 02/18/19 NOTE Original Ordering Provider: Velasquez Kemp RPR NONREACTIVE NONREACTIVE Reviewed by VELASQUEZ HEPATITIS C ANTIBODIES 02/18/19 NOTE Original Ordering Provider: Velasquez Kemp HEP C AB <0.1 s/co ratio 0.0-0.9 Negative: < 0.8 Indeterminate: 0.8 - 0.9 Positive: > 0.9 The CDC recommends that a positive HCV antibody result be followed up with a HCV Nucleic Acid Amplification test (763438). Reviewed by VELASQUEZ HEPATITIS B SURFACE AG 02/18/19 NOTE Original Ordering Provider: Velasquez Kemp HB SURF AG Negative Negative Performed at: [address] [id number] Line Staker: Mark Green PhD, Phone: [phone] Reviewed by VELASQUEZ HIV - [facility] 02/18/19 NOTE Original Ordering Provider: Velasquez Kemp HIV - [facility] Non-Reactive Nonreactive Reviewed by VELASQUEZ RUBELLA IGG 02/18/19 NOTE Original Ordering Provider: Velasquez Kemp RUBELLA IGG 41.5 IU/mL Antibody results Interpretation of Immune Status < 5 IU/ml Presumed Non-immune 5 - < 10 IU/ml Equivocal > or = 10 IU/ml Presumed Immune Reviewed by VELASQUEZ T AND S-NO CHARGE W/PNP 02/18/19 Reason for Type AND Screen/Red Cells: Surgery? N [facility]~[address] [place], [address]~ w BLOOD TYPE GEL O NEGATIVE N AB SCREEN GEL NEGATIVE N Reviewed by VELASQUEZ THYROID STIM HORMONE (TSH) 02/18/19 NOTE Original Ordering Provider: Velasquez Kemp TSH 3.10 uIU/mL 0.358-3.74 Reviewed by VELASQUEZ URINALYSIS, ROUTINE (DIPSTICK) 02/18/19 NOTE Original Ordering Provider: Velasquez Kemp COLOR Yellow Yellow CLARITY Sl. Cloudy Clear GLUCOSE, UR Normal mg/dlw Normal BILIRUBIN URINE Negative mg/dL Negative KETONE UR Negative mg/dl Negative SP.GR. DIPSTX 1.010 1.002-1.030 PH UR 7.0 5.0 - 8.0 PROT DIPSTX Negative mg/dl Negative UROBILI Normal mg/dl Normal NITRITE UR Negative Negative OCCULT BLOOD-UR Negative /ul Negative LEUK ESTERASE Negative /ul Negative Reviewed by VELASQUEZ CBC W/DIFF, AUTOMATED 02/18/19 NOTE Original Ordering Provider: Velasquez Kemp WBC 8.2 K/mm3 4.4-11.0 RBC 4.39 M/mm3 4.2-5.4 HGB 12.6 g/dl 12.0-15.0 HCT 36.9 % 37-47 L MCV 84.1 fL 81-99 MCH 28.7 pg 27.0-32.0 MCHC 34.1 g/gl 32-36 RDW CV 13.3 % 11.6-14.6 RDW SD 40.7 fl 35.1-43.9 PLT 223 K/mm3 150-450 MPV 9.6 fl 6.2-12.0 NEUT% 73.4 % 47-70 H LY% 20.3 % 19-41 MONO% 5.0 % 0-10 EO% 1.0 % 0-5 BASO% 0.1 % 0-1 IM GRAN % 0.200 % 0.0-0.9 IG% - Immature Granulocytes (promyelocytes, myelocytes and metamyelocytes) > 1% indicates that a LEFT SHIFT is Present. ABSOLUTE NEUT 6.0 X10 3/uL 2.0-7.7 ABSOLUTE LYMPH 1.66 X10 3/ul 0.83-4.51 Reviewed by VELASQUEZ INIT OB < 14WKS US 01/14/19 [facility] [address] [place] [address] Init OB < 14Wks US MR#: [id number] Acct: [id number] Name: ANNABELLE NOLEN Rep #: [id number] : 1990 F 28 From: Nilo Cortés MD PCP: Allegra Potts DO Status: REG CLI Study: Init OB < 14Wks US Date of Exam: 01/14/19 Exam# [id number] Ordering Dr: Velasquez Kemp MD STUDY: FIRST TRIMESTER OBSTETRICAL ULTRASOUND REASON FOR EXAM: Female, 28 years old. Gestational age LMP: TECHNIQUE: Transabdominal TECHNICAL QUALITY: Adequate. PRIOR ULTRASOUND: None. FINDINGS: There is visualization of a single gestational sac in a normal intrauterine position. The mean sac diameter (MSD) measures 3.43 cm, indicating an estimated gestational age (EGA) of 8 weeks, 6 days. The gestational sac shape is within normal limits. There is a visualized yolk sac. The yolk sac measures 5.8 mm. w The placenta is non-visualized. There is visualization of a live embryo. The crown-rump length (CRL) measures 2 cm, indicating an estimated gestational age (EGA) of 8 weeks, 5 days. There is demonstrated cardiac activity with a heart rate of 169 bpm. The estimated gestation age (EGA) by LMP is 8 weeks, 1 days. The estimated date of delivery (DAMON) by LMP is August 25, 2019. The estimated gestation age (EGA) by US is 8 weeks, 6 days. The estimated date of delivery (DAMON) by US is August 20, 2019. The uterus measures 9.9 x 7.4 x 6.4 cm. There is no demonstrated uterine fibroid. The cervix is closed. Small subchorionic hemorrhage measuring 1.5 x 1.3 x 1.1 cm The right ovary measures 4.2 x 2.1 x 1.9 cm. There is no right ovarian cyst. There is no visualized right adnexal mass or complex lesion. The left ovary measures 3.2 x 2.8 x 3.2 cm. There is no left ovarian cyst. There is no visualized left adnexal mass or complex lesion. There is no fluid in the cul de sac. US/Init OB < 14Wks US IMPRESSION: Viable intrauterine gestation approximately 8-9 weeks gestational age. Small subchorionic hemorrhage w Electronically Signed: Nilo Cortés MD at 16:08 EDT , Service support , CC: Velasquez Kemp MD; Allegra Potts DO Loader Engineer: Signed Reviewed by VELASQUEZ hernandez PAP IG W/REFLEX HR HPV APTIMA 12/31/18 NOTE Original Ordering Provider: Velasquez Kemp DIAGN . NEGATIVE FOR INTRAEPITHELIAL LESION OR MALIGNANCY. ADEQ . Satisfactory for evaluation. Endocervical and/or squamous metaplastic cells (endocervical component) are present. PERFORM . Reyna Garcia Facilities Maintenance Technician (ASCP) TEST METHOD . This liquid based ThinPrep(R) pap test was screened with the use of an image guided system. COMM . . PAPSMR . The Pap smear is a screening test designed to aid in the detection of premalignant and malignant conditions of the uterine cervix. It is not a diagnostic procedure and should not be used as the sole means of detecting cervical cancer. Both false-positive and false-negative reports do occur. HPV RFLX . The HPV DNA reflex criteria were not met with this specimen result therefore, no HPV testing was performed. Performed at: [address] [id number] Line Staker: Keisha Gonzalez MD, Phone: [phone] Reviewed by VELASQUEZ [facility] BY PCR 12/31/18 NOTE Original Ordering Provider: Velasquez [facility] PCR Negative Negative NG BY PCR Negative Negative Reviewed by ELSIE PROVIDER SIGNATURE ( REQUIRED) PHYSICAL EXAMINATION General Appearence: 29 yo female in no acute distress Vital Signs: AF, VSS Heart: RRR without rubs or gallops Lungs: CTA x 2 Breasts: deferred Abdomen: gravid Pelvis: Cervix: 3/70/-2 at 2155, 5/81/-2 at 2230 per RN Presentation: cephalic Fetus: Size: AGA Movement: present Heart: 135 baseline, moderate variability with accels, no decels UCs: Q 3-5 minutes Impression: 29yo at 40w2d gestation by 8w6d US Active labor May Thurner syndrome, on asa, has declined other anticoagulation GBS positive urine, Amoxicillin allergy, strain sensitive to Clin damycin O negative blood type SROM x 5.5+ hours Cat 1 FHTs Plan: Admit to inpatient Continuous EFM Begin GBS prophylaxis Pitocin, 2mu/hr, increase by 2 mu per hour to achieve adequate labor Epidural upon request Anticipate vaginal delivery
[2019-08-21] MEDS: Lactated Ringers 1,000 ML 50 ML IV (23:49)
[2019-08-22 00:29] LABS: Absolute Lymphocyte Count 2.11 X10^3/uL (0.83-4.51); Absolute Neutrophil Count 8.2 X10^3/uL (2.0-7.7); Basophil# 0.03 X10^3/uL; Basophil% 0.3 % (0-1); Eosinophil# 0.13 X10^3/uL; Eosinophils% 1.1 % (0-5); Hemoglobin 12.1 g/dL (12.0-15.0); Lymphocyte # 2.11 X10^3/ul (4.0); Lymphocyte % 18.6 % (19-41); Mean Corp Hgb Conc 33.6 g/dL (32-36); Mean Corpuscular Hgb 28.5 pg (27.0-32.0); Mean Corpuscular Volume 84.7 fL (81-99); Mean Platelet Vol. 11.1 fl (6.2-12.0); Monocyte# 0.83 X10^3/uL; Monocyte% 7.3 % (0-10); NRBC Flagged by Analyzer 0 % (0-5); Neutrophil # 8.18 X10^3/uL (2.7-7.7); Neutrophil % 72.3 % (47-70); Platelet Count 206 K/mm3 (150-450); RBC Distribution Width SD 42.8 fl (35.1-43.9); Red Blood Count 4.25 M/mm3 (4.2-5.4); White Blood Count 11.3 K/mm3 (4.4-11.0)
[2019-08-22] MEDS: Oxytocin 30 units/NS 500 ml 30 UNITS/500 ML IV.SOLN IV (00:29)
[2019-08-22] MEDS: Lactated Ringers 500 ML 999 ML IV ×2 (00:34→01:45)
--- NOTE | 2019-08-22 01:55 | PCM.PN.BLA ---
Progress Note This is a late entry for 08/22/219 at 0053 S: Increasing discomfort with contractions, requesting cervical exam and then epidural; spouse bedside and supportive O: AVSS FHTs: 135 baseline, moderate variability, with accels, no decels UCs: Q 2-3.5 Pitocin: 2mu Cervix: 5/80/-2 A: 29yo at 40w2d gestation by 8w6d US Active labor May Thurner syndrome, on asa, has declined other anticoagulation GBS positive, Oneg blood type SROM x 7+ hours Cat 1 FHTs P: Continue initial POC May have epidural Anticipate vaginal delivery
[2019-08-22] MEDS: fentaNYL-bupivacaine (epidural) 100 ML BAG EPIDURAL (02:32)
--- NOTE | 2019-08-22 04:06 | PCM.PN.BLA ---
Progress Note S: Comfortable with epidural; feeling pressure with UCs and requesting cervical exam; spouse beside and supportive O: AVSS FHTs: 155 baseline, moderate variability, with accels, no decels UCs: Q 2-3 minutes Cervix: 8/90/0, BBOW Pitocin: 6mu A: Active labor Cat 1 FHTs P: AROM BBOW for clear fluid w/permission of patient Continue POC, close observation/monitoring Anticipate vaginal delivery
[2019-08-22] MEDS: Ondansetron 4 MG/2 ML Vial IV (05:36)
--- NOTE | 2019-08-22 05:49 | PCM.PN.BLA ---
Progress Note S: Comfortable amd pushing with epidural; requests anesthesia to decrease rate from 10 to 8 to be able to push more effectively; feeling some nausea O: AVSS FHTs: 155 baseline, minimal to moderate variability, no accels, periodic variables to 90bpm with pushing, good recovery UCs: Cervix: 10/100/+1-2 Pitocin 6mu A: Second stage labor pushing x 1 hour, minimal progress Cat 2 FHTs, reassuring P: Zofran, 4mg IV x 1 now for nausea Frequent position changes, ryan to Hands and Knees to facilitate pushing; may labor down for one hour if patient prefers
[2019-08-22] MEDS: Lactated Ringers 500 ML 200 ML IV (06:50)
[2019-08-22] MEDS: Lactated Ringers 1,000 ML 200 ML IV (07:35)
[2019-08-22] MEDS: Oxytocin 30 units/NS 500 ml 30 UNITS/500 ML IV.SOLN 334 UNITS IV (08:15)
--- NOTE | 2019-08-22 09:04 | PCM.OPRPT ---
Vaginal Delivery Maternal Presentation: Active Labor, Spontaneous Rupture of Membranes Pt presented to unit c/o contractions following SROM at home Method of Induction: Pitocin Amniotic Membrane Rupture Type: Spontaneous at home Rupture of Membrane time: 1730 on 08/21/2019 Amniotic Fluid Description: Clear Final DAMON: 08/20/19 Final DAMON Source: US <20 weeks Gestational age: 40 Weeks and 3 Days Date of Procedure: 08/22/19 Pre-Operative Diagnosis: Active labor post SROM at home Post-Operative Diagnosis: Surgery/ Procedure Performed: Spontaneous Vaginal Delivery Type of Anesthesia: Epidural Description of Procedure: CTSP when she was C/C/0; pushed for one hour to +1 station, then labored down for next hour r/t maternal fatigue; final hour pushed well and delivered a vigorous male over a 2nd degree vaginal laceration OA to ZACH; R nuchal hand noted; shoulders followed easily with minimal maternal effort; large varicosity noted surrounding introitus; placed on mothers abdomen, dried and stimulated, APGARs 8/9; cord clamped x 2 by CNM and cut by FOB; placenta delivered spontaneously, Peña mechanism, intact, 3-vessel cord, lateral insertion; 2nd degree midline vaginal laceration repaired with 3-0 Vicryl, good hemostasis obtained; EBL 300ml Lap sponge, raytec and instrument count correct x 2 with RN Presentation: Vertex, ZACH Placental Delivery Description: Spontaneous Placenta Disposition: [facility] Cord Vessel Description: 3 Vessels Cord Entanglement: None A gender: Male (1 minute): 8 (5 minute): 9 Laceration: Midline - Vaginal Medications given after delivery: IV Pitocin Complications: None
--- NOTE | 2019-08-22 09:14 | DCINST_ITS ---
Discharge Diet: No Restrictions Discharge Activity: Return to Normal Activity, No Restrictions, May Drive, May Shower, May Take a Tub Bath May resume sexual activity in: 6-8 weeks Weight Bearing Status: Weight bearing as tolerated Lifting Restrictions: Nothng heavier than the baby for two weeks Additional Activity Instructions:: Minimize cooking, cleaning, shopping or long car trips for two weeks; try to get at least 8 hours sleep in 24 hours for two weeks - sleep when the baby sleeps Call your doctor if your incision/area has: Continuous Slow Oozing, Sudden Increased Bleeding, Increased Pain/ Swelling, Increased Redness, Foul Smelling Discharge Call your doctor if you observe: Fever of 101 or Higher, Coldness, Increased Pain, Change in Color, Inability to urinate, Inability to have a bowel movement, Using more than one pad per hour, Shortness of breath, Dizziness, Fainting spells, Chest pain, Increased palpitations (irregular heartbeat), Calf discomfort, Uncontrolled pain Additional Instructions: If you experience any of the following, contact your healthcare provider. * Bleeding that soaks a pad every hour for 2 hours * Fever 100.4 or higher * Unrelieved incision or abdominal pain * Swelling, redness, discharge or bleeding from your incision or episiotomy site * Your incision begins to separate * Problems urinating (including inability to urinate or burning while urinating). * Visual changes * Severe headache * Flu-like symptoms * Pain or redness in one of both of your breasts * Pain, warmth, tenderness or swelling in your legs, especially the calf area * Frequent nausea and vomiting * Symptoms of depression or anxiety If you experience any of the following, call 911 or go to the nearest Emergency Room. * Chest pain * Problems breathing * Seizure activity * Partial or complete paralysis of a body part, slurred speech, weakness or drooping of the face, or a sudden inability to walk or hold your balance Allergies/Adverse Reactions: Allergies amoxicillin Allergy (Verified 08/21/19 22:57) Anaphylaxis shellfish derived Adverse Reaction (Verified 08/21/19 22:33) Nausea/Vom/Diarrhea Medications to take at Discharge PCQ-[id number]-[id number]-omega 3-fat com #1 27 mg-1 mg-300 mg capsule cap PO DAILY cap 05/05/19 Aspirin [Aspirin, Baby] 81 mg PO DAILY@0800 08/21/19 Docusate Sodium [Colace] 100 mg PO DAILY 08/21/19 Magnesium 08/21/19 RX: Ferrous Sulfate 325 mg PO DAILY 90 Days #30 tab 08/23/19 The following prescriptions were given: RX: Ferrous Sulfate 325 mg PO DAILY 90 Days #30 tab Transmission Status: Received by [facility] [id number] Please Follow Up With: Estela Esparza CNM When: In six weeks for checkup Primary Care Physician: Allegra Potts DO [Primary Care Provider] - Test Results: Test results from this visit will be discussed in further detail at your follow- up appointment, if applicable.
[2019-08-22] MEDS: Ibuprofen 600 MG Tablet PO ×3 (09:55→23:54)
[2019-08-22] MEDS: Acetaminophen 500 MG Tablet 1000 MG PO (12:00)
[2019-08-22 13:23] VITALS: BP 130/56; PULSE 89; RESP 18; TEMP 36.5
--- NOTE | 2019-08-22 14:11 | NURSING ---
vaginal varicosity noted during assessment. Ice to perineum. Has had tylenol and motrin. Pt requested cooper to be removed. No swelling to urethreal area. Cooper removed. Up to Bathroom for pericare and attempt to urinate. Pt knows she needs to measure 2 voids and has 6 hours to void. Pt moving well and comfortable at this time.
[2019-08-22 16:15] VITALS: BP 109/56; PULSE 82; RESP 18; TEMP 36.8
[2019-08-22 16:44] VITALS: BP 117/59; PULSE 81; RESP 18; TEMP 36.6
[2019-08-22 20:00] VITALS: BP 127/54; PULSE 90; RESP 16; TEMP 36.6; O2SAT 99
[2019-08-22 23:59] VITALS: BP 104/54; PULSE 75; RESP 18; TEMP 36.5
[2019-08-23 03:05] VITALS: BP 108/64; PULSE 78; RESP 18; TEMP 35.9
[2019-08-23 03:27] LABS: Hematocrit 26.5 % (37-47); Hemoglobin 8.9 g/dL (12.0-15.0); Mean Corp Hgb Conc 33.6 g/dL (32-36); Mean Corpuscular Hgb 28.8 pg (27.0-32.0); Mean Corpuscular Volume 85.8 fL (81-99); Mean Platelet Vol. 10.7 fl (6.2-12.0); Platelet Count 179 K/mm3 (150-450); RBC Distribution Width CV 14.3 % (11.6-14.6); RBC Distribution Width SD 43.4 fl (35.1-43.9); Red Blood Count 3.09 M/mm3 (4.2-5.4); White Blood Count 13.5 K/mm3 (4.4-11.0)
[2019-08-23] MEDS: Ibuprofen 600 MG Tablet PO ×2 (07:26→15:08)
[2019-08-23] MEDS: Senna/Docusate Sodium 1 Tablet PO (07:52)
[2019-08-23] MEDS: Dibucaine 30 GM Tube 1 APPLIC TOPICAL (07:52)
--- NOTE | 2019-08-23 08:23 | NURSING ---
significant labial swelling noted
[2019-08-23 14:00] VITALS: BP 92/53; PULSE 83; RESP 18; TEMP 36.4
--- NOTE | 2019-08-23 16:01 | PCM.PROGNOTE ---
Subjective: Pain well controlled, tolerating diet, passing flatus; going well; considering IUD for contraception after 6 week checkup; infant in biliblanket at bedside; spouse bedside and supportive Objective: AVSS Breasts filling, nipples atraumatic Fundus firm, midline, u/2, lochia small Perineal repair well approximated, no redness or bruising noted; edema markedly improved; varicosity around lower half of introitus markedly improved Large varicosities on L leg and groin visible but not palpable - Physical Exam Vitals/I&O's: Vital Signs Temp Pulse Resp BP Pulse Ox 97.6 F L 83 18 92/53 L 99 08/23/19 14:00 08/23/19 14:00 08/23/19 14:00 08/23/19 14:00 08/22/19 20:00 Oxygen Delivery Method Room Air Weight: 183 lb 10.321 oz Body Mass Index (BMI) 31.5 Intake and Output for Last 24 Hours 08/21/19 08/22/19 08/23/19 23:59 23:59 23:59 Intake Total 3723.58 / 3723.58 Output Total 2250 / 2250 Balance 1473.58 / 1473.58 General: Alert, Oriented x3, Cooperative, No apparent distress HEENT: PERRLA, EOMI Oral: Moist Mucosa Neck: Supple Lungs: Clear to auscultation, Normal air movement Cardiovascular: Regular rate, Regular Rhythm Abdomen: Bowel Sounds Present, Soft, Non Tender, Non-Distended, Passing Flatus Extremities: No edema, Capillary Refill Less than 3 Seconds, No Calf Tenderness Skin: No rashes Musculoskeletal: No Tenderness to Palpation of Joints or Extremities Neurological: Cranial nerves II-XII grossly intact, Deep Tendon Reflexes 2+/4 and Symmetrical Psych/Mental Status: Normal Affect, Appropriate, Alert and oriented to time, place, person, mood and affect Laboratory Results 08/23/19 03:20: WBC 13.5 H, RBC 3.09 L, Hgb 8.9 L, Hct 26.5 L, MCV 85.8, MCH 28.8, MCHC 33.6, RDW Std Deviation 43.4, RDW Coeff of Meagan 14.3, Plt Count 179, MPV 10.7 Current Medications Acetaminophen (Tylenol) 1,000 mg PO Q8H PRN PRN PRN Reason: Pain Score 1-3/10 Last Admin: 08/22/19 12:00 Dose: 1,000 mg Documented by: Bisacodyl (Dulcolax) 10 mg RECTAL UD PRN PRN Reason: If no BM Dibucaine (Dibucaine) 1 applic TOPICAL TID PRN PRN; Protocol PRN Reason: Discomfort Last Admin: 08/23/19 07:52 Dose: 1 tube Documented by: Hydrocortisone (Hytone) 1 applic TOPICAL TID PRN PRN; Protocol PRN Reason: Discomfort Ibuprofen (Motrin) 600 mg PO Q6H PRN PRN PRN Reason: Pain Score 1-310 Last Admin: 08/23/19 15:08 Dose: 600 mg Documented by: Methylergonovine Maleate (Methergine) 0.2 mg IM X1 PRN PRN Reason: Excess bleeding/uterine atony Senna/Docusate Sodium (Senokot-S, Allyson-Colace) 1 - 2 tablet PO DAILY PRN PRN PRN Reason: Constipation Last Admin: 08/23/19 07:52 Dose: 2 tablet Documented by: Simethicone (Mylicon) 80 mg PO PCHS PRN PRN Reason: Indigestion/Stomach pain Throat Lozenges (Dermoplast (Sp)) 1 applic TOPICAL 4X/DAY PRN PRN; Protocol PRN Reason: Swelling Medical Necessity - Tobacco Use Smoking Status: Never smoker Assessment/Plan Assessment: 29yo G2 now P2002 delivered via at 40w2d gestation by 8w6d PP Day #1, normal involution, normal course 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
[2019-08-23] MEDS: Acetaminophen 500 MG Tablet 1000 MG PO (19:39)
[2019-08-23 20:00] VITALS: BP 114/50; PULSE 84; RESP 16; TEMP 36.6
[2019-08-24 01:51] VITALS: BP 104/61; PULSE 72; RESP 16; TEMP 37.2
--- NOTE | 2019-08-24 04:28 | NURSING ---
This nurse walked into patients room and was not in cocoon, patient stated that the was not happy when in the cocoon. Pt was explained to the risks of not having the in the cocoon. Pt stated that even though she understood this she wanted to keep the infant from getting upset.
[2019-08-24] MEDS: Ibuprofen 600 MG Tablet PO ×2 (05:50→16:37)
[2019-08-24 08:00] VITALS: BP 110/55; PULSE 73; RESP 18; TEMP 36.6
--- NOTE | 2019-08-24 08:39 | PCM.PN.OB ---
Subjective: Pain well controlled, tolerating diet, passing flatus, has had bowel movement; bedside under bili lights, uncertain as to whether he will be discharged today Objective: AVSS Breasts filling, nipples atraumatic Fundus firm, midline, u/3, lochia scant Perineal repair well approximated, minimal edema, no redness or bruising noted; varicosity at introitus markedly improved - Physical Exam Vitals/I&O's: Vital Signs Temp Pulse Resp BP Pulse Ox 98.9 F 72 16 104/61 99 08/24/19 01:51 08/24/19 01:51 08/24/19 01:51 08/24/19 01:51 08/22/19 20:00 Oxygen Delivery Method Room Air Weight: 183 lb 10.321 oz Body Mass Index (BMI) 31.5 Intake and Output for Last 24 Hours 08/22/19 08/23/19 08/24/19 23:59 23:59 23:59 Intake Total 3723.58 / 3723.58 Output Total 2250 / 2250 Balance 1473.58 / 1473.58 General: Alert, Oriented x3, Cooperative, No apparent distress HEENT: PERRLA, EOMI Oral: Moist Mucosa Neck: Supple Lungs: Clear to auscultation, Normal air movement Cardiovascular: Regular rate, Regular Rhythm Abdomen: Bowel Sounds Present, Soft, Non Tender, Non-Distended, Passing Flatus Extremities: Capillary Refill Less than 3 Seconds, No Calf Tenderness, Edema - mild, non pitting, bilateral pedal Skin: No rashes Musculoskeletal: No Tenderness to Palpation of Joints or Extremities Neurological: Cranial nerves II-XII grossly intact, Deep Tendon Reflexes 2+/4 and Symmetrical, Neuro grossly intact Psych/Mental Status: Normal Affect, Appropriate, Alert and oriented to time, place, person, mood and affect Current Medications Acetaminophen (Tylenol) 1,000 mg PO Q8H PRN PRN PRN Reason: Pain Score 1-3/10 Last Admin: 08/23/19 19:39 Dose: 1,000 mg Documented by: Bisacodyl (Dulcolax) 10 mg RECTAL UD PRN PRN Reason: If no BM Dibucaine (Dibucaine) 1 applic TOPICAL TID PRN PRN; Protocol PRN Reason: Discomfort Last Admin: 08/23/19 07:52 Dose: 1 tube Documented by: Hydrocortisone (Hytone) 1 applic TOPICAL TID PRN PRN; Protocol PRN Reason: Discomfort Ibuprofen (Motrin) 600 mg PO Q6H PRN PRN PRN Reason: Pain Score 1-3/10 Last Admin: 08/24/19 05:50 Dose: 600 mg Documented by: Methylergonovine Maleate (Methergine) 0.2 mg IM X1 PRN PRN Reason: Excess bleeding/uterine atony Senna/Docusate Sodium (Senokot-S, Allyson-Colace) 1 - 2 tablet PO DAILY PRN PRN PRN Reason: Constipation Last Admin: 08/23/19 07:52 Dose: 2 tablet Documented by: Simethicone (Mylicon) 80 mg PO PCHS PRN PRN Reason: Indigestion/Stomach pain Throat Lozenges (Dermoplast (Sp)) 1 applic TOPICAL 4X/DAY PRN PRN; Protocol PRN Reason: Swelling Medical Necessity - Tobacco Use Smoking Status: Never smoker Assessment/Plan Assessment: 29yo G2 now P2002 delivered via at 40w2d gestation by 8w6d US PP Day #2, normal involution, normal course 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
[2019-08-24 13:47] VITALS: BP 118/62; PULSE 84; RESP 16; TEMP 36.7
== END 2019-08-24 17:00 | disposition home or self-care (01) | DRG 806 ==
LOC: WPOUT 22:44
PROVIDERS: Obstetrics & Gynecology; Admitting Provider Advanced Practice Midwife; Family Provider Internal Medicine; PCP Internal Medicine; Referring Provider Advanced Practice Midwife; Visit Provider Advanced Practice Midwife
DX: O99.824 Streptococcus B carrier state complicating childbirth (principal); I87.1 Compression of vein; Z37.0 Single live birth; O75.81 Maternal exhaustion complicating labor and delivery; O70.1 Second degree perineal laceration during delivery; Z3A.40 40 weeks gestation of pregnancy; O99.12 Other diseases of the blood and blood-forming organs and certain disorders involving the immune mechanism complicating childbirth; O87.8 Other venous complications in the puerperium
CPT/HCPCS: 59025; 59050; 84112; 85025; 85027; 85461; 86850; 86900; 86901; 90384; 99218; J7120; G0378; J2405; J2790

== ENCOUNTER → 2020-03-28 14:00 | Outpatient (CLI) | payer SELFPAY ==
--- NOTE | 2020-03-28 14:10 | VDLE_ITS ---
Reason For Study: CVI LEFT CFV is compressible, spontaneous, phasic, competent, and demonstrates normal augmentation. FV is compressible, spontaneous, phasic, competent and demonstrates normal augmentation. POP V is compressible, spontaneous, phasic, competent and demonstrates normal augmentation. T/P Trunk is compressible. PTV is compressible. LT PerV is compressible. SFJ is competent and measures 0.52cm x 0.56 cm. GSV proximal thigh measures 0.36cm x 0.36 cm. GSV at knee measures 0.36cm x 0.35 cm. Lt GSV at knee only is Incompetent for greater than 0.5 sec Lt thigh varicosities at prox and distal are Incompetent but unable to assess origin. Interpretation Summary Left leg no DVT or SVT but primary varicose veins noted. Ordering Physician: Tylor Escobar Referring Physician: Allegra Potts Performed By: Akua Morrison RDCS, RVT
== END ==
PROVIDERS: PCP Internal Medicine; Referring Provider Surgery Vascular Surgery; Visit Provider Surgery Vascular Surgery
DX: I87.1 Compression of vein (principal); M79.605 Pain in left leg; I83.892 Varicose veins of left lower extremity with other complications
CPT/HCPCS: 93971

== ENCOUNTER → 2020-04-20 08:08 | Outpatient (CLI) | payer SELFPAY ==
--- NOTE | 2020-04-20 08:16 | CT_ITS ---
STUDY: CT ABDOMEN AND PELVIS WITH CONTRAST REASON FOR EXAM: Female, 29 years old. VARICOSE VEINS LEFT LEG. R/O ILIAC STENOSIS. CHRONIC VENOUS INSUFFICIENCY STUDY RADIATION DOSAGE (If Supplied By Facility): CTDIvol = ( 11.58 ) mGy, DLP = ( 729.39 ) mGycm TECHNIQUE: Transaxial images were obtained from the dome of the diaphragm to the symphysis pubis without oral contrast. IV 100mL Isovue-370 was administered. Sagittal and coronal images were reconstructed. Individualized dose optimization techniques were used for this CT. COMPARISON: None. FINDINGS: The visualized lung bases are unremarkable. The visualized portions of the heart are within normal limits. Normal liver. Normal gallbladder and extrahepatic biliary system. Normal spleen. Normal pancreas. Normal bilateral adrenal glands. Normal right kidney. Normal left kidney. There is a small hiatal hernia. Normal small intestine. Normal colon. The appendix is visualized and appears normal. Normal abdominal aorta. Normal inferior vena cava. Normal retroperitoneum. Normal urinary bladder. There is a 2.7 cm x 2.6 cm cyst in the left ovary. Small follicles are seen in the right ovary. The endometrium measures 16.6 mm. Small benign-appearing bilateral inguinal lymph nodes. There is a small umbilical hernia containing fat. Varicosities are seen in the subcutaneous tissues overlying the anterior aspect of the left thigh. The left common iliac vein is not compressed by the left common iliac artery. Normal osseous structures. CT/Abdomen/Pelvis WITH Contrast IMPRESSION: Small left ovarian cyst. Electronically Signed: Jayce Camp, at 9:11 EDT , Service support ,
== END ==
PROVIDERS: PCP Internal Medicine; Referring Provider Surgery Vascular Surgery; Visit Provider Surgery Vascular Surgery
DX: I83.892 Varicose veins of left lower extremity with other complications (principal); I87.1 Compression of vein; M79.605 Pain in left leg
CPT/HCPCS: 74177; Q9967

== ENCOUNTER → 2021-04-05 11:01 | Outpatient (CLI) | payer SELFPAY ==
--- NOTE | 2021-04-05 11:05 | VDLE_ITS ---
Reason For Study: PAIN Procedure LEFT Exam performed in department. GSV is normal. CFV is compressible, spontaneous, phasic, competent, and demonstrates normal augmentation. FV is compressible, spontaneous, phasic, competent and demonstrates normal augmentation. POP V is compressible, spontaneous, phasic, competent and demonstrates normal augmentation. T/P Trunk is compressible. PTV is compressible. LT PerV is compressible. VL/Venous Duplex US, Unilateral Interpretation Summary Left lower extremity with no evidence of DVT noted. Ordering Physician: Tylor Escobar Referring Physician: REANNA BANUELOS Performed By: Debby Hernandez, LAZARO, RVT
== END ==
PROVIDERS: PCP Internal Medicine; Referring Provider Surgery Vascular Surgery; Visit Provider Surgery Vascular Surgery
DX: I87.1 Compression of vein (principal); M79.605 Pain in left leg; I83.892 Varicose veins of left lower extremity with other complications
CPT/HCPCS: 93971

== ENCOUNTER → 2021-04-19 15:18 | Outpatient (CLI) | payer SELFPAY ==
[2021-04-19 14:35] VITALS: BMI 31.5
[2021-04-19 16:03] LABS: Hemoglobin A1c 5.3 % (3.8-5.6)
[2021-04-19 16:13] LABS: T4 Free Direct 0.83 ng/dL (0.76-1.46); Thyroid Stim Hormone (TSH) 3.86 uIU/mL (0.358-3.74)
== END ==
PROVIDERS: PCP Internal Medicine; Referring Provider Internal Medicine; Visit Provider Internal Medicine
DX: O24.419 Gestational diabetes mellitus in pregnancy, unspecified control (principal); R00.1 Bradycardia, unspecified; Z3A.00 Weeks of gestation of pregnancy not specified
CPT/HCPCS: 83036; 84439; 84443

== ENCOUNTER → 2021-04-28 14:03 | Outpatient (CLI) | payer SELFPAY ==
[2021-04-19 14:35] VITALS: BMI 31.5
--- NOTE | 2021-04-28 14:06 | EKG12_ITS ---
Test Reason : MILES Blood Pressure : / mmHG Vent. Rate : 061 BPM Atrial Rate : 061 BPM P-R Int : 140 ms QRS Dur : 094 ms QT Int : 426 ms P-R-T Axes : 050 036 006 degrees QTc Int : 428 ms Normal sinus rhythm with sinus arrhythmia Normal ECG Confirmed by RADHA VIVAR, SHELLEY ([id number]), editorial cartoonist PATRICK COMER ([id number]) on 05/01/2021 9:16:56 AM Referred By: Flaca King Confirmed By:SHELLEY GARCIA MD
== END ==
PROVIDERS: PCP Internal Medicine; Referring Provider Internal Medicine; Visit Provider Internal Medicine
DX: R00.1 Bradycardia, unspecified (principal)
CPT/HCPCS: 93005

== ENCOUNTER → 2021-05-04 14:03 | Outpatient (CLI) | payer SELFPAY ==
[2021-04-28 14:38] VITALS: BMI 27.3
--- NOTE | 2021-05-04 14:06 | ECHOD_ITS ---
Reason For Study: Arrhythmia Procedure This was a 2D Doppler, Color Flow transthoracic echocardiogram. The exam was of adequate technical quality. Exam performed in department. Left Ventricle Normal LV size. Left ventricular systolic function is normal. The estimated ejection fraction is 60 %. No evidence for diastolic dysfunction. No regional wall motion abnormalities noted. Right Ventricle Normal RV size. Normal systolic function. Atria Normal left atrium. Normal right atrium. No doppler evidence for ASD. Mitral Valve There is no mitral annular calcification. Normal mitral valve. Trivial mitral valve insufficiency. Tricuspid Valve Normal tricuspid valve. Trivial tricuspid valve insufficiency. Right ventricular systolic pressure estimated to be 26 mmHg. Aortic Valve Trisinus/trileaflet aortic valve. Normal aortic valve. Pulmonic Valve The pulmonic valve is not well visualized. Trivial pulmonic valve insufficiency. Great Vessels Normal sized aortic root. Pericardium/Pleural No pericardial effusion. MMode/2D Measurements & Calculations LVIDd: 5.4 cm IVSd: 0.88 cm Ao root diam: 2.8 cm LVIDs: 3.8 cm LVPWd: 0.84 cm RVDd: 3.2 cm FS: 30.2 % LAV(MOD-bp): 46.9 ml LVAd ap4: 35.0 cm2 LVAd ap2: 31.6 cm2 LAV(MOD-bp) Indexed: 26.7 ml/m2 LVLd ap4: 8.2 cm LVLd ap2: 8.0 cm LAV(MOD-sp2): 45.2 ml EDV(MOD-sp4): 124.6 ml EDV(MOD-sp2): 106.8 ml LAV(MOD-sp4): 42.8 ml EDV(sp4-el): 126.4 ml EDV(sp2-el): 105.6 ml LVAs ap4: 20.0 cm2 LVAs ap2: 19.9 cm2 LVLs ap4: 6.5 cm LVLs ap2: 6.8 cm ESV(MOD-sp4): 52.2 ml ESV(MOD-sp2): 50.5 ml ESV(sp4-el): 52.2 ml ESV(sp2-el): 49.2 ml EF(MOD-sp4): 58.1 % EF(MOD-sp2): 52.7 % EF(sp4-el): 58.7 % SV(MOD-sp4): 72.4 ml SV(MOD-sp2): 56.3 ml SV(sp4-el): 74.2 ml LA dimension(2D): 3.0 cm LA A4 area: 16.3 cm2 RA A4 area: 15.0 cm2 Doppler Measurements & Calculations MV E max ruben: 86.9 cm/sec Lat Peak E' Ruben: 16.9 cm/sec Med Peak E' Ruben: 12.0 cm/sec MV A max ruben: 54.0 cm/sec E/E' lat: 5.1 E/E' med: 7.3 MV E/A: 1.6 Ao V2 max: 139.6 cm/sec LV V1 max: 108.3 cm/sec PA V2 max: 100.0 cm/sec Ao max P.8 mmHg LV V1 max P.7 mmHg TR max ruben: 237.7 cm/sec TR max P.6 mmHg ECHO/Echo Complete Interpretation Summary Left ventricular systolic function is normal. The estimated ejection fraction is 60 %. Trivial mitral valve insufficiency. Trivial tricuspid valve insufficiency. Trivial pulmonic valve insufficiency. Right ventricular systolic pressure estimated to be 26 mmHg. No evidence for diastolic dysfunction. Ordering Physician: Mitchell Hebert Referring Physician: Flaca King Performed By: Blanca Monge RDCS
--- NOTE | 2021-05-04 14:06 | RAD_ITS ---
STUDY: X-RAY CHEST REASON FOR EXAM: Female, 30 years old. Shortness of breath. Symptoms began in FEBRUARY. Bradycardia arrhythmia. TECHNIQUE: PA and lateral views of the chest. COMPARISON: None. FINDINGS: The lungs are clear and expanded. There is no demonstrated pleural abnormality. Normal size heart. Normal mediastinum and julio. Normal visualized pulmonary arteries. Normal visualized aortic arch and descending thoracic aorta. Normal visualized thoracic spine. Normal visualized ribs, clavicles, and shoulders. There is no demonstrated abnormality of the visualized soft tissue structures of the upper abdomen. RAD/Chest PA and Lateral IMPRESSION: Normal x-ray examination of the chest. Electronically Signed: Hernan Veliz DO at 16:45 EDT Tel [phone], Service support ,
== END ==
PROVIDERS: PCP Internal Medicine; Referring Provider Internal Medicine Cardiovascular Disease; Visit Provider Internal Medicine Cardiovascular Disease
DX: R00.1 Bradycardia, unspecified (principal); R07.9 Chest pain, unspecified; R55 Syncope and collapse; R06.02 Shortness of breath
CPT/HCPCS: 71046; 93306

== ENCOUNTER 2021-07-04 08:50 | Emergency (ER) | payer SELFPAY ==
[2021-07-04 08:52] VITALS: BP 158/87; PULSE 102; RESP 20; TEMP 36.7; O2SAT 100; BMI 26.6
--- NOTE | 2021-07-04 09:40 | EKG12_ITS ---
Test Reason : DIZZINESS Blood Pressure : / mmHG Vent. Rate : 066 BPM Atrial Rate : 066 BPM P-R Int : 142 ms QRS Dur : 096 ms QT Int : 404 ms P-R-T Axes : 048 033 005 degrees QTc Int : 423 ms Normal sinus rhythm with sinus arrhythmia Normal ECG Confirmed by MATEO VIVAR, JUAN MIGUEL ([id number]), manager editorial PATRICK COMER ([id number]) on 07/05/2021 9:03:00 AM Referred By: JUAN MANUEL Confirmed By:JUAN MIGUEL GALINDO MD
--- NOTE | 2021-07-04 09:41 | EX.ED.DYSGE1 ---
HPI History of Present Illness Chief Complaint: Dizziness Informant: patient Narrative Narrative: 30-year-old female presents the emergency department with concerns for pulmonary embolism. 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 She felt like she may pass out. She states that since February she has had episodes like this. She saw primary care and cardiology. She has had chest x-ray and echocardiogram as well as EKG. these did not show anything significant. She was scheduled for Holter monitor due to bradycardia but was feeling better so she did not wear it. She is concerned that she has post Covid symptoms and may be having pulmonary embolisms. [facility] Medical History Anxiety Back problem Bone fracture Bradycardia Chest pain, unspecified COVID-19 Gestational diabetes mellitus (GDM) Hyperglycemia Preventative health care Seasonal allergies Severe headache Severe headache Subclinical hypothyroidism Home Medications WGH-drxx-PN-omega 3-fat com #1 27 mg-1 mg-300 mg capsule cap PO DAILY cap 05/05/19 [History Last Taken 08/20/19] aspirin 81 mg PO DAILY@0800 08/21/19 [History Last Taken 08/20/19] ascorbic acid 100 mg-elderberry fruit 50 mg chewable tablet 1 tab PO DAILY tab 04/28/21 [History Last Taken Unknown] ferrous sulfate 325 mg (65 mg iron) tablet 325 mg PO DAILY PRN 04/28/21 [History Last Taken Unknown] Allergy/AdvReac Type Severity Reaction Status Date / Time amoxicillin Allergy Anaphylaxis Verified 07/04/21 08:54 shellfish derived AdvReac Nausea/Vom/ Verified 07/04/21 08:54 Diarrhea Family History Grandmother Cancer skin Grandfather Diabetes CVA (cerebral vascular accident) Heart disease Father Heart disease Hypertension Grandfather Heart disease Surgical History History of tonsillectomy Social History Smoking Status: Never smoker alcohol intake: current details: occasional substance use type: does not use caffeine: Yes Type: coffee Number of servings: 1 frequency: 3-4 times per week ROS ROS ED ROS Narrative Dizziness which the patient describes more as a lightheadedness. Heavy arms Constitutional Constitutional ED: Denies chills or weight loss Eyes Eyes: Denies change in vision or diplopia ENT ENT ED: Denies ear pain, rhinorrhea or sore throat Cardiovascular Cardiovascular: Reports palpitations and racing heartbeat; Denies chest pain or orthopnea Respiratory/Chest Respiratory/Chest: Reports dyspnea; Denies cough or orthopnea Gastrointestinal Gastrointestinal: Denies abdominal pain, diarrhea, nausea or vomiting Genitourinary Genitourinary ED: Denies dysuria, hematuria or urinary frequency Musculoskeletal Musculoskeletal: Denies arthralgias or myalgias Integumentary Denies abscess or rash Neurologic Neurologic: Reports weakness; Denies headache(s) Psychiatric Psychiatric: Denies anxiety, depression, suicidal ideation or suicidal thoughts Endocrine Endocrinology: Denies polydipsia, polyphagia or polyuria Allergic/Immunologic Allergic/Immunologic ED: Denies mouth swelling, tongue swelling or urticaria EXAM Physical Exam Const Vital Signs: 07/04/21 08:52 07/04/21 09:08 Temperature 98.0 F Temperature Source Temporal Pulse Rate 102 H Respiratory Rate 20 H Respiratory Effort Normal Non-Labored Respiratory Pattern Normal Blood Pressure 158/87 H Blood Pressure Mean 110 Pulse Ox 100 Oxygen Delivery Method Room Air Positive well nourished and well developed General Appearance ED: well developed HEENT Reports normocephalic, head/scalp atraumatic and moist mucous membranes Eyes PERRL and EOMs intact bilaterally Neck no lymphadenopathy, supple and no JVD Resp normal respiratory effort and clear to auscultation bilaterally Cardio regular rate, regular rhythm and no murmurs GI normal to inspection, nondistended, normoactive bowel sounds and non-tender Palpation: soft Back/Spine no CVA tenderness and normal ROM Extremity normal to inspection General Extremety ED: Negative for edema General Extremity: Negative for edema Neuro oriented x3 and CN's II-XII intact bilaterally Sensorium / Orientation: alert Motor Exam: strength 5/5 throughout Psych Appearance: other Patient appears extremely anxious Mood & Affect: tearful; Negative for depressed Skin no rashes or lesions noted and no wounds MDM MDM MDM Narrative Medical decision making narrative: My interpretation of the chest x-ray is no acute process. Normal mediastinal silhouette. Patient's blood work including D-dimer and troponin CMP and CBC are negative except for a glucose of 120. Patient's had no events on the monitor. At this point I think the patient can be discharged home. I urged follow-up with primary care for continued evaluation. Lab Data Attestation: I reviewed the patient's lab results. Labs: Laboratory Results - last 24 hr 07/04/21 07/04/21 07/04/21 09:53 09:53 09:53 WBC 4.7 RBC 4.70 Hgb 13.2 Hct 39.4 MCV 83.8 MCH 28.1 MCHC 33.5 RDW Std Deviation 39.8 RDW Coeff of Meagan 13.1 Plt Count 215 MPV 9.6 Immature Gran % (Auto) 0.200 Neut % (Auto) 64.0 Lymph % (Auto) 28.0 [place] % (Auto) 6.6 Eos % (Auto) 0.8 Baso % (Auto) 0.4 Absolute Neuts (auto) 3.0 Absolute Lymphs (auto) 1.32 Nucleated RBC % 0 D-Dimer Quant (PE/DVT) <= 0.27 Sodium 136 Potassium 3.8 Chloride 103 Carbon Dioxide 27.0 Anion Gap 6 BUN 13 Creatinine 0.74 Estim Creat Clear Calc 95.99 Est GFR (MDRD) Af Amer 117 Est GFR (MDRD) Non-Af 97 BUN/Creatinine Ratio 17.5 Glucose 120 H Calcium 8.9 Total Bilirubin 0.50 AST 19 ALT 21 Alkaline Phosphatase 37 L Troponin I High Sens 15 Total Protein 7.7 Albumin 3.8 Globulin 3.9 Albumin/Globulin Ratio 1.0 Radiography Diagnostic Testing: Clinical Impression(s) from Imaging Studies Chest X-Ray 07/04/21 10:05 IMPRESSION: Normal x-ray examination of the chest. Electronically Signed: Jayce Camp MD at 10:23 EDT , Service support , EKG Initial EKG: Attestation: I personally reviewed and interpreted this EKG as follows: Comments: Normal sinus rhythm with a ventricular rate of 66 bpm. Discharge Plan Triage Chief Complaint: Dizziness ED Provider: Jacobo Albrecht Dx/Rx/DC Orders Clinical Impression: Near syncope, Anxiety Instructions: ED Near-Fainting, Uncertain Cause Prescriptions: No Action SFW-suqf-VR-omega 3-fat com #1 27 mg-1 mg-300 mg capsule 27-1-300 mg capsule PO DAILY RF: 0 ferrous sulfate [FeroSul] 325 mg (65 mg iron) tablet 325 mg PO DAILY PRNRF: 0 ascorbic acid-elderberry fruit 100-50 mg tablet,chewable 1 tab PO DAILY RF: 0 aspirin 81 MG tablet,chewable 81 mg PO DAILY@0800 RF: 0 Primary Care Provider: Flaca King Referrals: Flaca King MD [Primary Care Provider] - As soon as possible Disposition Disposition: Home, Self Care
[2021-07-04 10:00] LABS: Absolute Lymphocyte Count 1.32 X10^3/uL (0.83-4.51); Basophil# 0.02 X10^3/uL; Basophil% 0.4 % (0-1); Eosinophil# 0.04 X10^3/uL; Eosinophils% 0.8 % (0-5); Hematocrit 39.4 % (37-47); Hemoglobin 13.2 g/dL (12.0-15.0); Lymphocyte # 1.32 X10^3/ul (0.83-4.51); Mean Corp Hgb Conc 33.5 g/dL (32-36); Mean Corpuscular Hgb 28.1 pg (27.0-32.0); Mean Corpuscular Volume 83.8 fL (81-99); Mean Platelet Vol. 9.6 fl (6.2-12.0); Monocyte# 0.31 X10^3/uL; Monocyte% 6.6 % (0-10); NRBC Flagged by Analyzer 0 % (0-5); Neutrophil # 3.02 X10^3/uL (2.7-7.7); Platelet Count 215 K/mm3 (150-450); RBC Distribution Width CV 13.1 % (11.6-14.6); RBC Distribution Width SD 39.8 fl (35.1-43.9); White Blood Count 4.7 K/mm3 (4.4-11.0)
--- NOTE | 2021-07-04 10:05 | RAD_ITS ---
STUDY: X-RAY CHEST REASON FOR EXAM: Female, 30 years old. Shortness of breath, dizziness and anxiety. TECHNIQUE: Single AP portable view of the chest. COMPARISON: Comparison is made with prior study dated 05/04/2021. FINDINGS: EKG electrodes are seen. The lungs are clear and expanded. There is no demonstrated pleural abnormality. Normal size heart. Normal mediastinum and julio. Normal visualized pulmonary arteries. Normal visualized aortic arch and descending thoracic aorta. Normal visualized thoracic spine. Normal visualized ribs, clavicles, and shoulders. There is no demonstrated abnormality of the visualized soft tissue structures of the upper abdomen. RAD/Chest 1 View (Portable) IMPRESSION: Normal x-ray examination of the chest. Electronically Signed: Jayce Camp MD at 10:23 EDT , Service support ,
[2021-07-04 10:16] LABS: D-Dimer Quantitative (DVT/PE) <= 0.27 FEU/ug/m (0.27-0.49)
[2021-07-04 10:20] LABS: AST(SGOT) 19 U/L (15-37); Alanine Aminotransfer ALT/SGPT 21 U/L (13-56); Albumin, Serum 3.8 g/dL (3.2-5.0); Alkaline Phosphatase 37 U/L (45-117); Anion Gap 6 (5-15); BUN 13 mg/dL (7-18); BUN/Creat Ratio 17.5 RATIO (10-20); Calcium,Total 8.9 mg/dL (8.5-10.1); Chloride 103 mmol/L (98-107); Creatinine, Serum 0.74 mg/dL (0.55-1.02); EST Glomerular Filtration Rate 97 mL/min (>60); Est Glom Filt Rate - Afr Amer 117 mL/min (>60); Estimated Creatinine Clearance 95.99 ml/min; Globulin 3.9 g/dL (2.2-4.2); Glucose 120 mg/dL (74-106); Potassium 3.8 mmol/L (3.5-5.1); Protein, Total 7.7 g/dL (6.4-8.2); Sodium Level 136 mmol/L (136-145); Troponin-I HS 15 pg/mL (3.0-54.0)
[2021-07-04 10:52] VITALS: BP 108/73
== END 2021-07-04 11:02 | disposition home or self-care (01) ==
PROVIDERS: Emergency Provider Emergency Medicine; PCP Internal Medicine
DX: R55 Syncope and collapse (principal); F41.9 Anxiety disorder, unspecified; Z86.16 Personal history of COVID-19; Z79.82 Long term (current) use of aspirin
CPT/HCPCS: 71045; 80053; 84484; 85025; 85379; 93005; 99284; A4216

== ENCOUNTER → 2021-07-10 09:19 | Outpatient (CLI) | payer SELFPAY ==
[2021-07-10 13:02] LABS: T4 Free Direct 0.84 ng/dL (0.76-1.46); Thyroid Stim Hormone (TSH) 3.05 uIU/mL (0.358-3.74)
== END ==
PROVIDERS: PCP Internal Medicine; Referring Provider Internal Medicine; Visit Provider Internal Medicine
DX: E03.8 Other specified hypothyroidism (principal)
CPT/HCPCS: 36415; 84439; 84443

== ENCOUNTER → 2021-08-02 08:22 | Outpatient (CLI) | payer SELFPAY ==
[2021-08-02 12:17] LABS: Hematocrit 37.7 % (37-47); Hemoglobin 12.2 g/dL (12.0-15.0); Mean Corp Hgb Conc 32.4 g/dL (32-36); Mean Corpuscular Volume 86.5 fL (81-99); Mean Platelet Vol. 10.4 fl (6.2-12.0); Platelet Count 257 K/mm3 (150-450); RBC Distribution Width CV 13.2 % (11.6-14.6); RBC Distribution Width SD 41.3 fl (35.1-43.9); Red Blood Count 4.36 M/mm3 (4.2-5.4); White Blood Count 5.3 K/mm3 (4.4-11.0)
[2021-08-02 12:28] LABS: International Normalized Ratio 1.2; Partial Thromboplast Time 35.2 Seconds (24.1-36.2); Prothrombin Time (Protime)PT. 14.1 SECONDS (11.7-14.9)
[2021-08-02 12:29] LABS: Fibrinogen 210 mg/dl (203-444)
[2021-08-02 12:30] LABS: D-Dimer Quantitative (DVT/PE) <= 0.27 FEU/ug/m (0.27-0.49)
[2021-08-02 12:47] LABS: AST(SGOT) 16 U/L (15-37); Alanine Aminotransfer ALT/SGPT 22 U/L (13-56); Albumin, Serum 3.7 g/dL (3.2-5.0); Alkaline Phosphatase 36 U/L (45-117); Anion Gap 5 (5-15); BUN 13 mg/dL (7-18); BUN/Creat Ratio 16.3 RATIO (10-20); Calcium,Total 8.7 mg/dL (8.5-10.1); Chloride 110 mmol/L (98-107); EST Glomerular Filtration Rate 89 mL/min (>60); Est Glom Filt Rate - Afr Amer 108 mL/min (>60); Ferritin 7 ng/mL (8-252); Globulin 3.7 g/dL (2.2-4.2); Glucose 70 mg/dL (74-106); Iron 61 ug/dL (50-170); Iron Binding Capacity,Total 363 ug/dL (250-450); LDH 141 U/L (84-246); PERCENT IRON SATURATION 16.8 % (15.0-55.0); Potassium 3.7 mmol/L (3.5-5.1); Protein, Total 7.4 g/dL (6.4-8.2); Sodium Level 140 mmol/L (136-145)
[2021-08-02 12:55] LABS: Vitamin B12 403 pg/mL (211-911)
[2021-08-04 13:46] LABS: Deamidated Gliadin IgA 5 units (0-19); Deamidated Gliadin IgG 2 units (0-19)
== END ==
PROVIDERS: PCP Internal Medicine; Referring Provider Internal Medicine; Visit Provider Internal Medicine
DX: L65.9 Nonscarring hair loss, unspecified (principal); T14.8XXA Other injury of unspecified body region, initial encounter; R55 Syncope and collapse
CPT/HCPCS: 36415; 80053; 82533; 82607; 82627; 82728; 83516; 83540; 83550; 83615; 83921; 85027; 85245; 85379; 85384; 85610; 85730; 82626

== ENCOUNTER → 2021-08-02 11:29 | Outpatient (CLI) | payer SELFPAY ==
[2021-04-28 14:38] VITALS: BMI 27.3
--- NOTE | 2021-08-02 13:21 | STRESSREP_ITS ---
Stress Test Report Date: 08-02-2021 Procedure: Exercise tolerance test Indications: Chest pain; COVID-19 (2019) Consent: Per the patient Procedure: The patient exercised on a Shayne protocol for 12 minutes completing Stage IV achieving a peak heart rate of 179 bpm (94% predicted maximal heart rate) with a peak blood pressure 146/68 mmHg and a peak MET capacity of approximately 13 MET's. The baseline ECG demonstrated normal sinus rhythm. The peak exercise ECG demonstrated no obvious ECG changes. There were no cardiac dysrhythmias pretest, during exercise, or recovery. The functional capacity was considered good. The patient had no complaint of chest discomfort during exercise or recovery. The examination was discontinued secondary to dyspnea. Impression: 1. Technically adequate (percent predicted maximal heart rate greater than 85%) exercise tolerance test 2. Peak exercise ECG with no obvious ECG changes 3. There were no cardiac dysrhythmias during exercise or recovery This note was generated with [employer] software. It may contain incorrect words, spelling, and punctuation that were not noted in checking the note before signing.
== END ==
PROVIDERS: PCP Internal Medicine; Referring Provider Internal Medicine Cardiovascular Disease; Visit Provider Internal Medicine Cardiovascular Disease
DX: R00.1 Bradycardia, unspecified (principal); R06.02 Shortness of breath; R07.9 Chest pain, unspecified; R55 Syncope and collapse
CPT/HCPCS: 93017

== ENCOUNTER → 2021-08-08 08:40 | Outpatient (CLI) | payer SELFPAY ==
[2021-04-28 14:38] VITALS: BMI 27.3
[2021-08-08 09:42] LABS: Internal QC Validated? YES +Cl - CLEAR BKGD; Pregnancy, Serum, hCG Quali. NEGATIVE Negative
--- NOTE | 2021-08-08 17:01 | TILTTABLE_ITS ---
Staff Staff: Sushma Mustafa and - (Lori Rodriguez) Summary Pre Test Resting HR: 71 Pre Test Resting BP: 109/70 Minimum Test HR: 71 Maximum Test HR: 90 Minimum Test BP: 106/83 Maximum Test BP: 129/67 Reason for Test Termination: Reached Maximum Test Time Physician Tilt Table Report Patient's Physicians Primary Care Physician: Allegra Potts First Front Ventilator: Mitchell Hebert Indications/Diagnosis: Dizziness/lightheadedness Syncope (2019) Procedure Comments: The patient was brought to the tilt table laboratory and laid supine on the tilt table. The patient was awake and alert and warm and dry. The baseline heart rate was 71 bpm with a baseline blood pressure of 109/70 mmHg. The cardiac rhythm was sinus rhythm. The patient was placed in the 70 degree upright tilt table position for approximately 30 minutes. The patient remained alert and oriented during this time. The minimal heart rate during this time appeared to be 71 bpm with a minimal blood pressure of 106/83 mmHg and a maximal heart rate of 90 bpm with a maximal blood pressure 129/67 mmHg. The patient remained in sinus rhythm. The patient complained of a variety of symptoms which included dizzy , heart pounding , weight on chest , shortness of breath, hot flash behind legs , little rivera , and was also reported as talking continuously. The patient did not lose consciousness. The patient's palms were recorded as clammy . The patient was returned to the supine position. The patient was monitored in the supine position where she remained alert and oriented. She was noted to have a concluding heart rate of 60 bpm with a concluding blood pressure 122/70 mmHg. She remained in sinus rhythm. She stated she feels fine. Summary: 70 degree tilt table study demonstrating symptoms concerning for vasovagal mediated symptoms but considered negative for reproducible vasovagal/neurocardiogenic syncope. This note was generated using a voice recognition system and there may be incor rect words, spelling or punctuation that were not noted when reviewing the office note prior to saving.
[2021-08-08 17:09] VITALS: BP 106/83; BP 109/70; BP 129/67
== END ==
PROVIDERS: PCP Internal Medicine; Referring Provider Internal Medicine Cardiovascular Disease; Visit Provider Internal Medicine Cardiovascular Disease
DX: R00.0 Tachycardia, unspecified (principal); R00.2 Palpitations; R55 Syncope and collapse; R00.1 Bradycardia, unspecified; R06.02 Shortness of breath; R07.9 Chest pain, unspecified
CPT/HCPCS: 36415; 84703; 93660; J7040; A4216

== ENCOUNTER → 2021-09-06 13:06 | Outpatient (CLI) | payer SELFPAY ==
[2021-09-06 15:27] LABS: Absolute Lymphocyte Count 1.92 X10^3/uL (0.83-4.51); Absolute Neutrophil Count 4.8 X10^3/uL (2.0-7.7); Basophil# 0.02 X10^3/uL; Basophil% 0.3 % (0-1); Eosinophil# 0.06 X10^3/uL; Eosinophils% 0.8 % (0-5); Hematocrit 37.3 % (37-47); Hemoglobin 12.5 g/dL (12.0-15.0); Lymphocyte # 1.92 X10^3/ul (0.83-4.51); Lymphocyte % 26.3 % (19-41); Mean Corp Hgb Conc 33.5 g/dL (32-36); Mean Corpuscular Hgb 28.7 pg (27.0-32.0); Mean Corpuscular Volume 85.6 fL (81-99); Mean Platelet Vol. 10.7 fl (6.2-12.0); Monocyte# 0.48 X10^3/uL; Monocyte% 6.6 % (0-10); NRBC Flagged by Analyzer 0 % (0-5); Neutrophil # 4.79 X10^3/uL (2.7-7.7); Neutrophil % 65.7 % (47-70); Platelet Count 261 K/mm3 (150-450); RBC Distribution Width CV 12.6 % (11.6-14.6); RBC Distribution Width SD 39.4 fl (35.1-43.9); Red Blood Count 4.36 M/mm3 (4.2-5.4); White Blood Count 7.3 K/mm3 (4.4-11.0)
[2021-09-06 15:38] LABS: Progesterone Level 1.59 ng/mL (See Comment)
[2021-09-06 15:47] LABS: Estradiol 54.6 pg/mL; Free T3 2.3 pg/mL (2.18-3.98); T4 Free Direct 0.82 ng/dL (0.76-1.46); Thyroid Stim Hormone (TSH) 2.11 uIU/mL (0.358-3.74)
[2021-09-10 07:47] LABS: Testosterone Free 1.1 pg/mL (0.0-4.2)
== END ==
PROVIDERS: PCP Internal Medicine; Visit Provider Internal Medicine
DX: E34.9 Endocrine disorder, unspecified (principal); E61.1 Iron deficiency
CPT/HCPCS: 36415; 82533; 82627; 82670; 84144; 84402; 84439; 84443; 84481; 85025; 82626

== ENCOUNTER → 2021-09-25 09:41 | Outpatient (CLI) | payer SELFPAY ==
[2021-09-25 13:03] LABS: Free T3 2.7 pg/mL (2.18-3.98); T4 Free Direct 0.84 ng/dL (0.76-1.46); Thyroid Stim Hormone (TSH) 4.39 uIU/mL (0.358-3.74)
[2021-09-26 18:27] LABS: Thyroglobulin Antibody < 1.0 IU/mL (0.0-0.9); Thyroid Peroxidase AB < 8 IU/mL (0-34)
== END ==
PROVIDERS: PCP Internal Medicine
DX: E06.3 Autoimmune thyroiditis (principal)
CPT/HCPCS: 36415; 84439; 84443; 84481; 86376; 86800

== ENCOUNTER 2021-10-03 11:34 | Outpatient (CLI) | payer SELFPAY | END 2021-10-03 23:59 | disposition short-term general hospital (02) | LOC: COVBMS 11:34 | PROVIDERS: PCP Internal Medicine | DX: R76.0 Raised antibody titer (principal); Z86.16 Personal history of COVID-19 | CPT/HCPCS: 86769 ==

== ENCOUNTER → 2021-10-10 12:57 | Outpatient (CLI) | payer SELFPAY ==
--- NOTE | 2021-10-10 13:01 | VDLE_ITS ---
Reason For Study: R/O DVT RIGHT LEFT GSV is normal. GSV is normal. CFV is compressible, spontaneous, phasic, CFV is compressible, spontaneous, phasic, competent and demonstrates normal competent, and demonstrates normal augmentation. augmentation. FV is compressible, spontaneous, phasic, FV is compressible, spontaneous, phasic, competent and demonstrates normal competent and demonstrates normal augmentation. augmentation. POP V is compressible, spontaneous, phasic, POP V is compressible, spontaneous, phasic, competent and demonstrates normal competent and demonstrates normal augmentation. augmentation. T/P Trunk is compressible. T/P Trunk is compressible. PTV is compressible. PTV is compressible. RT PerV is compressible. LT PerV is compressible. Procedure This is a venous duplex using B-mode, color flow and spectral Doppler. Exam performed in department. A preliminary report was called and/or faxed to [facility]. VL/Venous Duplex US - Benjy Extrem Interpretation Summary No evidence for acute deep venous thrombosis bilateral lower extremities with p atent and compressible bilateral great saphenous veins. Ordering Physician: SENTHIL FELDER Referring Physician: Allegra Potts M.D. Performed By: Luba Grimes RVT
== END ==
PROVIDERS: PCP Internal Medicine
DX: T14.8XXA Other injury of unspecified body region, initial encounter (principal)
CPT/HCPCS: 93970

== ENCOUNTER 2021-11-08 08:30 | Outpatient (CLI) | payer SELFPAY ==
--- NOTE | 2021-11-08 08:35 | US_ITS ---
STUDY: ABDOMINAL ULTRASOUND REASON FOR EXAM: Female, 31 years old. History of nausea and abdominal spasms. TECHNIQUE: Transabdominal ultrasound was performed with real-time and static estrella scale imaging. TECHNICAL QUALITY: Adequate. COMPARISON: None. FINDINGS: Liver: The liver measures 14 point cm. There is normal echogenicity of the liver. The bile ducts are within normal limits. There is hepatic color flow. The direction of portal flow is hepatopetal. There is no demonstrated mass lesion. Gallbladder: Normal distended gallbladder. The gallbladder wall measures 2.5 mm. There is a negative sonographic Adams''s sign. There is no pericholecystic fluid. There are no gallstones. Common Bile Duct (C.B.D.): The common bile duct measures 5.3 mm. Pancreas: Normal size of the head, body and tail of the pancreas. There is normal echogenicity of the pancreas. There is no demonstrated pancreatic mass or cyst. Spleen: Normal size of the spleen. The spleen measures 11.7 cm x 5.6 cm x 4.4 cm. Right Kidney: Normal size of the right kidney. The right kidney measures 10.1 cm x 6.1 cm x 4 cm. Normal renal cortex. The right cortex measures 1.2 cm. There is no demonstrated renal mass or cyst. There is no right hydronephrosis. Left Kidney: Normal size of the left kidney. The left kidney measures 10.3 cm x 5 cm x 4.8 cm. Normal renal cortex. The left cortex measures 1.3 cm. There is no demonstrated renal mass or cyst. There is no left hydronephrosis. Aorta: Unremarkable I.V.C.: The IVC is patent. There is no ascites. US/Abdomen Complete IMPRESSION: Normal abdominal ultrasound examination. Electronically Signed: Jayce Camp MD at 9:55 EST ,
== END 2021-11-08 23:59 | disposition home or self-care (01) ==
PROVIDERS: PCP Internal Medicine; Referring Provider Internal Medicine; Visit Provider Internal Medicine
DX: R11.0 Nausea (principal)
CPT/HCPCS: 76700

== ENCOUNTER 2021-12-19 11:30 | Outpatient (CLI) | payer SELFPAY ==
[2021-12-26 16:45] LABS: HPV Reflexed? NOT INDICATED
== END 2021-12-19 23:59 | disposition home or self-care (01) ==
LOC: LABSPEC 12-20 08:37
PROVIDERS: PCP Internal Medicine; Visit Provider Obstetrics & Gynecology
DX: Z12.4 Encounter for screening for malignant neoplasm of cervix (principal)
CPT/HCPCS: 88175; G0145

== ENCOUNTER → 2022-02-28 | Outpatient (CLI) | payer SELFPAY ==
[2022-02-28 15:18] LABS: Hematocrit 39.7 % (37-47); Hemoglobin 13.2 g/dL (12.0-15.0); Mean Corp Hgb Conc 33.2 g/dL (32-36); Mean Corpuscular Hgb 29.1 pg (27.0-32.0); Mean Corpuscular Volume 87.6 fL (81-99); Mean Platelet Vol. 10.8 fl (6.2-12.0); Platelet Count 227 K/mm3 (150-450); RBC Distribution Width CV 12.9 % (11.6-14.6); RBC Distribution Width SD 41.4 fl (35.1-43.9); Red Blood Count 4.53 M/mm3 (4.2-5.4); White Blood Count 6.6 K/mm3 (4.4-11.0)
[2022-02-28 15:37] LABS: Vitamin B12 443 pg/mL (211-911)
[2022-02-28 15:38] LABS: Ferritin 30 ng/mL (8-252)
[2022-02-28 19:45] LABS: T4 Free Direct 0.81 ng/dL (0.76-1.46); Thyroid Stim Hormone (TSH) 3.09 uIU/mL (0.358-3.74)
== END | disposition home or self-care (01) ==
PROVIDERS: Internal Medicine Endocrinology, Diabetes & Metabolism; PCP Internal Medicine
DX: R23.8 Other skin changes (principal)
CPT/HCPCS: 36415; 82607; 82728; 84439; 84443; 85027

== ENCOUNTER → 2022-03-14 | Outpatient (CLI) | payer SELFPAY ==
[2022-03-14 12:31] LABS: Prolactin 6.8 ng/mL
== END | disposition home or self-care (01) ==
LOC: LAB.FUTURE 10:57 → BIMLAB 11:23
PROVIDERS: PCP Internal Medicine; Visit Provider Student in an Organized Health Care Education/Training Program
DX: N64.52 Nipple discharge (principal)
CPT/HCPCS: 36415; 84146

== ENCOUNTER → 2022-04-11 | Outpatient (CLI) | payer SELFPAY ==
--- NOTE | 2022-04-11 09:51 | US_ITS ---
STUDY: ULTRASOUND BREAST - RIGHT REASON FOR EXAM: Female, 31 years old. Nipple discharge in the right breast. TECHNIQUE: Axial and longitudinal images of the RIGHT breast were performed with a high resolution ultrasound transducer. # OF IMAGES: 26 COMPARISON: Comparison is made with prior mammogram done earlier in the day. FINDINGS: RIGHT Breast: The retroareolar region of the right breast was examined with ultrasound. No sonographic abnormality is seen. US/Breast Limited Unilateral IMPRESSION: No sonographic abnormality is seen. ASSESSMENT CATEGORY: BIRADS Category 1: Negative. A letter regarding these results will be sent to the patient by the facility within 30 days. Electronically Signed: Jayce Camp MD at 11:18 EDT ,
--- NOTE | 2022-04-11 09:51 | BI_ITS ---
MAMMOGRAPHY - BILATERAL DIAGNOSTIC REASON FOR EXAM: Female, 31 years old. Retroareolar right breast pain with clear discharge. PERTINENT HISTORY: Non-contributory. TECHNIQUE: Digital bilateral breast miguel (3D mammographic acquisition) in the CC and MLO projections. 2-D mediolateral oblique (MLO) and craniocaudad (CC) views of both breasts were obtained. CAD: Full Field Digital Mammography with Computer Added Detection was performed. COMPARISON: None. Baseline examination. FINDINGS: Breast Composition: The breasts are extremely dense, which lowers the sensitivity of mammography. There are no dominant masses or suspicious calcifications. No other significant abnormalities are identified. BI/DIAG MAMM W/CAD, BILAT IMPRESSION: Negative diagnostic mammogram. With the patient''s history of right breast discharge, correlation with ultrasound is recommended. ASSESSMENT CATEGORY: BIRADS Category 0: Incomplete. Need additional imaging evaluation. A letter regarding these results will be sent to the patient by the facility within 30 days. Approximately 10% of breast cancers are not detected by mammography. A normal mammogram should not delay biopsy of a clinically suspicious abnormality. Electronically Signed: Jayce Camp MD at 11:02 EDT ,
== END | disposition home or self-care (01) ==
PROVIDERS: PCP Internal Medicine; Visit Provider Student in an Organized Health Care Education/Training Program
DX: N64.4 Mastodynia (principal)
CPT/HCPCS: 76642; 77062; 77066; G0279

== ENCOUNTER 2022-06-06 10:23 | Outpatient (CLI) | payer SELFPAY ==
[2022-06-06 12:36] LABS: Progesterone Level 0.39 ng/mL (See Comment)
[2022-06-06 13:16] LABS: Estradiol 87.1 pg/mL; Free T3 2.4 pg/mL (2.18-3.98); T4 Free Direct 0.85 ng/dL (0.76-1.46); Thyroid Stim Hormone (TSH) 4.05 uIU/mL (0.358-3.74)
[2022-06-08 11:10] LABS: Thyroglobulin Antibody < 1.0 IU/mL (0.0-0.9); Thyroid Peroxidase AB 17 IU/mL (0-34)
== END 2022-06-06 23:59 | disposition home or self-care (01) ==
PROVIDERS: PCP Internal Medicine; Referring Provider Nurse Practitioner Women's Health; Visit Provider Nurse Practitioner Women's Health
DX: E03.9 Hypothyroidism, unspecified (principal); E28.8 Other ovarian dysfunction
CPT/HCPCS: 36415; 82670; 84144; 84403; 84439; 84443; 84481; 86376; 86800

== ENCOUNTER 2022-12-24 17:48 | Outpatient (CLI) | payer SELFPAY ==
[2022-12-24 18:00] VITALS: BP 108/62; PULSE 81; TEMP 36.3
[2022-12-24 18:12] VITALS: BMI 31.7
[2022-12-24 18:51] LABS: ROM Internal Control Test YES-OK TO RESULT pt. (Internal QC); ROM Patient Test Negative (Negative)
--- NOTE | 2022-12-24 19:03 | OB.TRI.HP_ITS ---
HPI - General HPI Narrative ANNABELLE NOLEN, is a 32 F at 30.4 weeks gestation who presents to triage with leaking fluid. Patient reports feels like she was leaking urine over the past couple of days and today underwear were soiled. She is concerned that she may be leaking amniotic fluid. Maternal Data Information DAMON Calculator Estimated Delivery Date Method Current WG Current Estimate 02/28/23 Manual 30w 4d PFSH PFS Medical History (Updated 12/24/22 @ 19:09 by Katie Villanueva CNM) Anemia Anxiety Back problem Bone fracture Bradycardia Chest pain, unspecified COVID-19 Dysautonomia-like disorder GERD (gastroesophageal reflux disease) Gestational diabetes mellitus (GDM) H/O emotional problems Hormone deficiency Hyperglycemia Hypoglycemia Preventative health care Seasonal allergies Severe headache Severe headache Subclinical hypothyroidism Thyroid disease Vascular disease Home Medications VFO-ejyo-LO-omega 3-fat com #1 27 mg-1 mg-300 mg capsule cap PO DAILY 05/05/19 [History Last Taken 08/20/19] ascorbic acid 100 mg-elderberry fruit 50 mg chewable tablet 1 tab PO DAILY 04/28/21 [History Last Taken Unknown] ferrous sulfate 325 mg (65 mg iron) tablet (FeroSul) 325 mg PO DAILY PRN 04/28/21 [History Last Taken Unknown] lorazepam 0.5 mg tablet 0.5 mg PO ONCE PRN 07/21/21 [History Last Taken Unknown] escitalopram oxalate 5 mg tablet ea PO 11/16/21 [History Last Taken Unknown] levothyroxine 88 mcg tablet 88 mcg PO DAILY #90 tabs 11/17/21 [Rx Last Taken Unk nown] Allergy/AdvReac Type Severity Reaction Status Date / Time amoxicillin Allergy Anaphylaxis Verified 12/24/22 18:11 shellfish derived AdvReac Nausea/Vom/ Verified 12/24/22 18:11 Diarrhea Family History Grandmother Cancer skin Grandfather Diabetes CVA (cerebral vascular accident) Heart disease Father Heart disease Hypertension Grandfather Heart disease Other Anemia Anxiety Depression Myocardial infarction Skin cancer Thyroid disorder Surgical History History of tonsillectomy Social History Smoking Status: Never smoker alcohol intake: current alcohol intake frequency: holidays/special occasions only details: occasional substance use type: does not use caffeine: Yes Type: coffee Number of servings: 1 frequency: 3-4 times per week History Elective abortions Hx Para 1 Spontaneous abortions Hx # Term Pregnancies Ectopic pregnancies Hx # Pregnancies Multiple births # of living children NST FHR Rate Baby A Baseline: 145 Variability:: Moderate Accelerations:: 10 x 10 Decelerations:: None NST Reactive:: Yes FHR Category:: Category I Uterine Activity:: None Assessment & Plan (1) 30 weeks gestation of : (2) Anxiety: (3) Leakage of amniotic fluid: (4) Leaking of urine: PLAN: Plan FFN- negative ROM plus - negative NST reactive for gestational age D/C home with follow up in office for regular OB visit
[2022-12-24 19:07] LABS: Fetal Fibronectin Negative
== END 2022-12-24 19:00 | disposition home or self-care (01) ==
LOC: WPOUT 17:56 → WP 17:56
PROVIDERS: PCP Internal Medicine; Visit Provider Advanced Practice Midwife
DX: O42.913 Preterm premature rupture of membranes, unspecified as to length of time between rupture and onset of labor, third trimester (principal); Z3A.30 30 weeks gestation of pregnancy; O99.343 Other mental disorders complicating pregnancy, third trimester; F41.9 Anxiety disorder, unspecified; O99.891 Other specified diseases and conditions complicating pregnancy; R32 Unspecified urinary incontinence
CPT/HCPCS: 59025; 59050; 82731; 84112; 99221; G0378

== ENCOUNTER → 2023-01-23 | Outpatient (CLI) | payer SELFPAY ==
[2023-01-23 12:29] LABS: Hematocrit 35.9 % (37-47); Hemoglobin 11.7 g/dL (12.0-15.0); Mean Corp Hgb Conc 32.6 g/dL (32-36); Mean Corpuscular Hgb 29.2 pg (27.0-32.0); Mean Corpuscular Volume 89.5 fL (81-99); Mean Platelet Vol. 10.6 fl (6.2-12.0); Platelet Count 202 K/mm3 (150-450); RBC Distribution Width CV 13.1 % (11.6-14.6); RBC Distribution Width SD 43.1 fl (35.1-43.9); Red Blood Count 4.01 M/mm3 (4.2-5.4); White Blood Count 8.3 K/mm3 (4.4-11.0)
[2023-01-23 14:28] LABS: ALB/GLOB Ratio 0.7 RATIO (0.9-2.4); AST(SGOT) 30 U/L (15-37); Alanine Aminotransfer ALT/SGPT 30 U/L (13-56); Albumin, Serum 2.5 g/dL (3.2-5.0); Alkaline Phosphatase 74 U/L (45-117); Anion Gap 6 (5-15); BUN 7 mg/dL (7-18); BUN/Creat Ratio 14.6 RATIO (10-20); Calcium,Total 8.5 mg/dL (8.5-10.1); Chloride 109 mmol/L (98-107); Creatinine, Serum 0.48 mg/dL (0.55-1.02); EST Glomerular Filtration Rate 158 mL/min (>60); Est Glom Filt Rate - Afr Amer 192 mL/min (>60); Free T3 2.3 pg/mL (2.18-3.98); Globulin 3.7 g/dL (2.2-4.2); Glucose 80 mg/dL (74-106); Magnesium 1.8 mg/dL (1.6-2.6); Potassium 3.8 mmol/L (3.5-5.1); Protein, Total 6.2 g/dL (6.4-8.2); Sodium Level 137 mmol/L (136-145); T4 Free Direct 0.72 ng/dL (0.76-1.46); Thyroid Stim Hormone (TSH) 2.22 uIU/mL (0.358-3.74)
== END | disposition home or self-care (01) ==
PROVIDERS: PCP Internal Medicine; Referring Provider Obstetrics & Gynecology; Visit Provider Obstetrics & Gynecology
DX: E03.9 Hypothyroidism, unspecified (principal); E28.8 Other ovarian dysfunction; R00.2 Palpitations
CPT/HCPCS: 36415; 80053; 83735; 84439; 84443; 84481; 85027

== ENCOUNTER 2023-02-21 09:30 | Inpatient (IN) | payer SELFPAY ==
--- NOTE | 2023-02-15 12:38 | HP.PCM_ITS ---
History and Physical Date of Admission: 02/21/23 HPI: The patient is a 32 year old female presenting for pre-operative visit. She is scheduled for , for h/o 3rd degree laceration on 02/21/2023. Procedure discussed along with risks, benefits and complications. Other alternatives discussed for management. Consent form signed? Yes. ? ? PAST MEDICAL HISTORY PAST MEDICAL HISTORY Diagnosis Date ? Hypothyroidism ? ? Iron deficiency anemia ? ? May-Thurner syndrome ? ? Mental disorder ? ? Palpitations ? ? ? PAST SURGICAL HISTORY PAST SURGICAL HISTORY Procedure Laterality Date ? TONSILLECTOMY & ADENOIDECTOMY <AGE 12 ? CURRENT MEDICATIONS Current Outpatient Medications Medication Sig Dispense Refill ? famotidine (PEPCID) 20 mg tablet Take 1 tablet by mouth twice daily. 60 tablet 1 ? Iron 18 mg tab Take by mouth. ? ? ? vit37/iron/folic acid (PRENATA ORAL) Take by mouth. ? ? ? No current facility-administered medications for this visit. ? ? ALLERGIES: Amoxicillin and Shellfish Containing Products ? PERSONAL HISTORY: SOCIAL HISTORY Social History ? Tobacco Use ? Smoking status: Never ? Smokeless tobacco: Never Vaping Use ? Vaping Use: Never used Substance Use Topics ? Alcohol use: Not Currently ? ? Alcohol/week: 1.0 standard drink ? ? Types: 1 Glasses of Wine (5oz) per week ? Drug use: Never ? FAMILY HISTORY: FAMILY HISTORY FAMILY HISTORY Problem Relation Age of Onset ? other (anemia) Mother ? ? Anxiety disorder Mother ? ? Hypertension Father ? ? Heart Father ? ? Heart Brother ? ? other (other) Maternal Grandmother ? ? Thyroid Maternal Grandmother ? ? Skin Cancer Maternal Grandmother ? ? Stroke Maternal Grandfather ? ? other (stroke) Maternal Grandfather ? ? Skin Cancer Paternal Grandmother ? ? Thyroid Paternal Grandmother ? ? Heart Paternal Grandfather ? ? Heart Attack Paternal Grandfather ? ? No Known Problems Son ? ? No Known Problems Daughter ? ? ? REVIEW OF SYMPTOMS: GENERAL: denies fevers or chills ENDOCRINOLOGY: has not been on steroids Cardiology : chest pain, occas palpitations without recent changes Respiratory: denies SOB or cough Hematology: denies history of prolonged bleeding or easy bruising or VTE Allergy: Denies history of personal or family history of allergy to anesthesia ? PHYSICAL EXAMINATION: ? VITALS: Last menstrual period 05/29/2022. ? GENERAL: The patient is well nourished, well hydrated in no acute distress. , The patient is oriented to time, place, and person. NECK: Supple. No lynphadenopathy, normal thyroid, no thyromegaly. LUNGS: Clear to auscultation bilaterally. no wheezes, rhonchi or rales HEART: Regular rate and rhythm, Normal heart sounds, and No murmurs or gallops abd- soft, nontender, gravid ? IMPRESSION: Estimated Date of Delivery: 02/28/23 , h/o 3rd degree laceration ? PLAN: The risks/benefits/alternatives and personal involved for the planned c- section were reviewed with the patient. Her questions were answered to her satisfaction and she desires to proceed. Consent was signed. I reviewed with her postop instructions and expectations. ? ? I have reviewed and updated past medical and surgical history, medications and allergies Assessment & Plan Assessment/Plan (1) History of third degree perineal laceration: (2) 39 weeks gestation of : (3) High risk multigravida in third trimester:
[2023-02-21] VITALS (81 sets, daily range): BP systolic 88–121; BP diastolic 39–71; PULSE 61–106; RESP 14–18; TEMP 36.2–36.5; O2SAT 97–100; BMI 34.0
[2023-02-21] MEDS: Lactated Ringers 1,000 ML 999 ML IV ×2 (10:00→18:41)
[2023-02-21 10:21] LABS: Absolute Lymphocyte Count 1.39 X10^3/uL (0.83-4.51); Absolute Neutrophil Count 6.1 X10^3/uL (2.0-7.7); Basophil# 0.02 X10^3/uL; Basophil% 0.2 % (0-1); Eosinophil# 0.12 X10^3/uL; Eosinophils% 1.4 % (0-5); Hematocrit 35.2 % (37-47); Hemoglobin 11.8 g/dL (12.0-15.0); Lymphocyte # 1.39 X10^3/ul (0.83-4.51); Lymphocyte % 16.7 % (19-41); Mean Corp Hgb Conc 33.5 g/dL (32-36); Mean Corpuscular Volume 86.5 fL (81-99); Mean Platelet Vol. 10.7 fl (6.2-12.0); Monocyte# 0.61 X10^3/uL; Monocyte% 7.3 % (0-10); NRBC Flagged by Analyzer 0 % (0-5); Neutrophil # 6.09 X10^3/uL (2.7-7.7); Neutrophil % 73.4 % (47-70); Platelet Count 184 K/mm3 (150-450); RBC Distribution Width CV 13.1 % (11.6-14.6); RBC Distribution Width SD 41.1 fl (35.1-43.9); Red Blood Count 4.07 M/mm3 (4.2-5.4); White Blood Count 8.3 K/mm3 (4.4-11.0)
[2023-02-21] MEDS: Acetaminophen 500 MG Tablet 1000 MG PO (11:02)
[2023-02-21] MEDS: Lactated Ringers 1,000 ML 150 ML IV (11:03)
[2023-02-21 11:21] LABS: Syphilis Antibodies Non-reactive
[2023-02-21] MEDS: Sodium Citrate/Citric Acid 30 ML UDC PO (11:38)
[2023-02-21] MEDS: Clindamycin 900 MG/50 ML BAG 75 MG IV (12:07)
--- NOTE | 2023-02-21 12:36 | EX.PCM.OBRPT ---
Assessment & Plan (1) delivery delivered: (2) Single live : Maternal Data Information DAMON Calculator Estimated Delivery Date Method Current WG Current Estimate 02/28/23 Manual 39w 0d Final DAMON: 02/28/23 Gestational age: 39 0/7 Details Operative Information Date of Procedure: 02/21/23 Pre-Operative Diagnosis: elective c/s, h/o 3rd degree lac Post-Operative Diagnosis: same Classification: Scheduled Procedure Type: low transverse air traffic control operator #1: William Hathaway Type of Anesthesia: Spinal Anesthesiologist: Clinton Nicholas Antibiotic Given: Clindamycin 600mg IV x1 and Gentamicin 1.5mg/kg IV x1 Drain: Rushing to straight drain Estimated Blood Loss: 800 Fluids Replaced: 750 Procedure Start Time: 12:13 Procedure Stop Time: 12:42 Time of Delivery: 12:16 Findings Description of Procedure: The patient was taken to the operating room. She was prepped and draped in the dorsal supine position with a leftward tilt. A Pfannenstiel skin incision was made approximately 2 cm above the symphysis pubis and carried through to underlying layer fascia with the scalpel. The fascia was incised incised in the midline and extended laterally with the Arzate scissors. The rectus muscles were in the midline and the peritoneum was entered bluntly. The peritoneal incision was stretched and the bladder blade was placed. The uterine incision was made in a low transverse fashion with the scalpel and extended superiorly and inferiorly with blunt dissection. The amniotic membranes were ruptured bluntly and clear amniotic fluid returned. The 's head was brought to the incision in the flexed position and delivered without difficulty. The remainder of the was delivered with gentle traction and fundal pressure in the standard fashion. The mouth and nares were bulb suctioned. The cord was clamped and cut as the was stimulated. Cord clamping was delayed. The infant was handed off to the waiting nursing staff. The placenta was delivered with fundal massage and gentle traction in the standard fashion. The uterus was exteriorized and cleared of all clots and debris. The cervix was dilated with a ring forcep. The uterine incision was closed with #1 Vicryl in a running locked fashion. A second layer of the same suture was used in an imbricating fashion to obtain hemostasis. The incision was examined and was found to be hemostatic. The uterus was placed back into the peritoneal cavity and hemostasis was again confirmed. The rectus muscles were examined and any bleeding was Bovie cauterized. The parietal peritoneum and rectus muscles were closed en bloc with an 0 Vicryl running suture. The surgical teams outer gloves were then changed. The rectus fascia was examined and any bleeding was Bovie cauterized and the rectus fascia was closed with #1 PDS suture in a running standard fashion. The subcutaneous tissue was examining and any bleeding was Bovie cauterized. The subcutaneous tissue was reapproximated with 3-0 Vicryl suture. The skin was closed in a subcuticular fashion by the OYSTER UNLOADER with me present in the labor and delivery suite. I performed the remainder of the procedure with assistance. All sponge, lap, and needle counts were correct. The patient was taken to her room for recovery in a stable condition. Presentation: Positive for Vertex Amniotic Membrane Rupture Type: Artificial Amniotic Fluid Description: Clear Placental Delivery Description: Expressed Placenta Disposition: [facility] Specimen(s) Sent to Pathology: none Cord Vessel Description: 3 Vessels Cord Entanglement: Around neck x 1, loose Nuchal Cord Compression: Without compression Infant A Gender: Female (Vera 7lb 9 oz) (1 minute): 9 (5 minute): 9 Delayed Cord Clamping: Yes Complications Complications: none
[2023-02-21] MEDS: Oxytocin 15 Units/NS 250ml 15 UNITS/250 ML IV.SOLN 83 UNITS IV (12:55)
[2023-02-21] MEDS: Ketorolac 30 MG/ML Syringe IV ×2 (14:17→20:30)
[2023-02-21] MEDS: Lactated Ringers 1,000 ML 100 ML IV (15:37)
--- NOTE | 2023-02-21 19:03 | NURSING ---
1844 discussed in depth again with pt about safe sleep with - pt asked if she could sleep in the chair with her infant- discussed that no it is not safe; pt showed me a snuggle bed that she wants to use between her legs with her baby in it when she sleeps; informed pt that she cannot use that here because it is a smothering hazard and not safe to sleep a infant in
[2023-02-22] VITALS (7 sets, daily range): BP systolic 100–121; BP diastolic 55–75; PULSE 68–89; RESP 15–18; TEMP 36.4–36.8; O2SAT 98–99
[2023-02-22] MEDS: Ketorolac 30 MG/ML Syringe IV ×2 (02:35→08:24)
[2023-02-22] MEDS: Acetaminophen 500 MG Tablet 1000 MG PO ×2 (06:14→14:21)
[2023-02-22 06:30] LABS: Hematocrit 30.8 % (37-47); Hemoglobin 10.1 g/dL (12.0-15.0); Mean Corp Hgb Conc 32.8 g/dL (32-36); Mean Corpuscular Hgb 29.2 pg (27.0-32.0); Platelet Count 173 K/mm3 (150-450); RBC Distribution Width CV 13.3 % (11.6-14.6); RBC Distribution Width SD 42.9 fl (35.1-43.9); Red Blood Count 3.46 M/mm3 (4.2-5.4); White Blood Count 11.2 K/mm3 (4.4-11.0)
[2023-02-22] MEDS: Senna/Docusate Sodium 1 Tablet PO (08:24)
[2023-02-22] MEDS: 0.9% Saline Lock 10 ML Syringe IV (08:25)
--- NOTE | 2023-02-22 10:31 | PN.OBGYN_ITS ---
Subjective Subjective pain well controlled, average lochia, no N/V Objective Data Objective Data Vital Signs: Vital Signs Temp Pulse Resp BP Pulse Ox O2 Del Method 97.6 F L 89 16 111/75 98 Room Air 02/22/23 09:12 02/22/23 09:12 02/22/23 09:12 02/22/23 09:12 02/22/23 03:29 02/22/23 03:29 Oxygen Delivery Method Room Air Weight: 89.811 kg Body Mass Index (BMI) 34.0 Intake & Output: Intake and Output for Last 24 Hours 02/20/23 02/21/23 02/22/23 23:59 23:59 23:59 Intake Total 3880.02 / 3880.02 693.33 / 693.33 Output Total 3210 / 3210 250 / 250 Balance 670.02 / 670.02 443.33 / 443.33 Lab / Micro Data Result Diagrams: 02/22/23 06:20 Labs: Laboratory Results - last 24 hr 02/21/23 10:00: Blood Type O NEGATIVE, Antibody Screen POSITIVE, Antibody Identification ANTI-D 02/21/23 10:00: Syphilis Total Ab Non-reactive 02/21/23 15:15: Screen NEGATIVE, Baby's Blood Type O POSITIVE, Baby's MARCIA NEGATIVE 02/22/23 06:20: WBC 11.2 H, RBC 3.46 L, Hgb 10.1 L, Hct 30.8 L, MCV 89.0, MCH 29.2, MCHC 32.8, RDW Std Deviation 42.9, RDW Coeff of Meagan 13.3, Plt Count 173, MPV 11.0 02/22/23 06:20: Screen NEGATIVE, Baby's Blood Type O POSITIVE, Baby's MARCIA NEGATIVE Physical Exam Const alert General Appearance: cooperative GI GI Narrative: soft, moderate distention, fundus firm, appropriately tender. Abdominal bandage clean dry and intact Assessment & Plan (1) Single live : PLAN: Postop day #1 status post primary section. is breast- feeding and doing well. Patient is doing well. Mild acute blood loss anemia appropriate for blood loss during surgery. Patient is tolerating this well. Discharged home with routine instructions and follow-up. Patient desires discharge home today. (2) delivery delivered:
--- NOTE | 2023-02-22 10:38 | DS.PCM_ITS ---
Providers Date of Admission: 02/21/23 Date of Discharge: 02/22/23 Primary Care Physician: Dr. Allegra Potts, Reason For Visit: REPEAT C SECTION/PRIM C SECTION DELIVERY Diagnosis Discharge Diagnosis (1) Single live : Status: Acute Code(s): Z37.0 - Single live Plan: Postop day #1 status post primary section. is breast-feeding and doing well. Patient is doing well. Mild acute blood loss anemia appropriate for blood loss during surgery. Patient is tolerating this well. Discharged home with routine instructions and follow-up. Patient desires disc harge home today. (2) delivery delivered: Status: Acute Code(s): O82 - Encounter for delivery without indication Medications at Discharge Home Medications ZUD-nuyj-YS-omega 3-fat com #1 27 mg-1 mg-300 mg capsule 1 cap PO DAILY pregna ncy 05/05/19 ferrous sulfate 325 mg (65 mg iron) tablet (FeroSul) 325 mg PO DAILY PRN anemia 04/28/21 ibuprofen 600 mg tablet 600 mg PO Q6H PRN Pain 20 days #60 TABLETS 02/22/23 oxycodone 5 mg tablet 5 mg PO Q6H PRN PRN severe pain 7 days #12 TABLETS 02/22/23 Hospital Course Operations - (primary LTCS) Summary of Care Provided Hospital Course: Patient is a 32-year-old multigravida female who was admitted for elective section at 39 weeks due to history of third-degree laceration. Her section was performed on 02/21/2023 without difficulty. On postoperative day #1 she was doing well and desired discharge home with routine instructions and follow-up. Weight / BMI Weight Weight: 89.811 kg Body Mass Index (BMI) 34.0 ABG / Lab / Microbiology Data Result Diagrams: 02/22/23 06:20 Laboratory: Laboratory Results - last 24 hr 02/21/23 10:00: Blood Type O NEGATIVE, Antibody Screen POSITIVE, Antibody Identification ANTI-D 02/21/23 10:00: Syphilis Total Ab Non-reactive 02/21/23 15:15: Screen NEGATIVE, Baby's Blood Type O POSITIVE, Baby's MARCIA NEGATIVE 02/22/23 06:20: WBC 11.2 H, RBC 3.46 L, Hgb 10.1 L, Hct 30.8 L, MCV 89.0, MCH 29.2, MCHC 32.8, RDW Std Deviation 42.9, RDW Coeff of Meagan 13.3, Plt Count 173, MPV 11.0 02/22/23 06:20: Screen NEGATIVE, Baby's Blood Type O POSITIVE, Baby's MARCIA NEGATIVE D/C Instructions Discharge Activity: May Shower May resume sexual activity in: 6 weeks Lifting Restrictions: 15 lbs x 6 weeks Call your doctor if you observe: Fever of 101 or Higher and Using more than 1 pad per hour Remove Dressing in: 4 days Cleanse incision/area with: Soap & Water Please Follow Up With: Nancy Lackey MD When: Follow up with our office in 1-2 and 6 weeks or as needed. [phone] Meaningful Use Info Meaningful Use Diagnoses (Choose all that apply): None applicable Discharge Plan Admission Admit Date/Time: 02/21/23 09:30 Primary Reason for Your Visit: delivery Attending Provider: Nancy Lackey Primary Care Provider: Allegra Potts Discharge Orders/Prescriptions Prescriptions: New ibuprofen [ibuprofen] 600 MG tablet 600 mg PO Q6H PRN (Reason: Pain) 20 Days Qty: 60 1RF oxycodone 5 MG tablet 5 mg PO Q6H PRN PRN (Reason: severe pain) 7 Days Qty: 12 0RF Continued BRI-pbpa-MO-omega 3-fat com #1 27 mg-1 mg-300 mg capsule 27-1-300 mg capsule 1 cap PO DAILY ferrous sulfate [FeroSul] 325 mg (65 mg iron) tablet 325 mg PO DAILY PRN (Reason: anemia) Referrals / Follow Up: Allegra Potts DO [Primary Care Provider] - Disposition Disposition (needs filled in before D/C Order can be placed): Home, Self Care
== END 2023-02-22 16:10 | disposition home or self-care (01) | DRG 787 ==
PROVIDERS: Admitting Provider Obstetrics & Gynecology; PCP Internal Medicine; Referring Provider Obstetrics & Gynecology; Visit Provider Obstetrics & Gynecology
PROC: 10D00Z1 Extraction of Products of Conception, Low, Open Approach (ICD-10-PCS; CPT 59514; principal; 2023-02-21 11:45)
DX: O69.2XX0 Labor and delivery complicated by other cord entanglement, with compression, not applicable or unspecified (principal); D62 Acute posthemorrhagic anemia; Z37.0 Single live birth; Z3A.39 39 weeks gestation of pregnancy; Z87.59 Personal history of other complications of pregnancy, childbirth and the puerperium; O90.81 Anemia of the puerperium
CPT/HCPCS: 59050; 85025; 85027; 85461; 86780; 86850; 86870; 86900; 86901; 99221; J7120; A4216; G0378; J2405; J2790

== ENCOUNTER → 2023-10-28 | Outpatient (CLI) | payer SELFPAY ==
--- NOTE | 2023-10-28 09:39 | US_ITS ---
STUDY: ABDOMINAL ULTRASOUND - RIGHT UPPER QUADRANT REASON FOR VISIT: Female, 33 years old RUQ pain TECHNIQUE: Ultrasound evaluation of the right upper quadrant was performed with real-time and static estrella-scale imaging. TECHNICAL QUALITY: Adequate. COMPARISON: Comparison is made with prior study of November 08, 2021. FINDINGS: Liver: The liver measures 16 cm. There is normal echogenicity of the liver. The bile ducts are within normal limits. There is hepatic color flow. The direction of portal flow is hepatopetal. There is no demonstrated mass lesion. Gallbladder: Normal distended gallbladder. The gallbladder wall measures 2 mm. There is a negative sonographic Adams''s sign. There is no pericholecystic fluid. There are no gallstones. Common Bile Duct (C.B.D.): The common bile duct measures 4 mm. Pancreas: Normal size of the head, body of the pancreas. The tail portion is obscured due to overlying bowel gas. There is normal echogenicity of the pancreas. There is no demonstrated pancreatic mass or cyst. Right Kidney: Normal size of the right kidney. The right kidney measures 11.4 cm x 5.4 cm x 5 cm. Normal renal cortex. The right cortex measures 1.6 cm. There is no demonstrated renal mass or cyst. There is no right hydronephrosis. US/Abdomen Limited IMPRESSION: Normal right upper quadrant ultrasound examination. Electronically Signed: Jayce Camp MD at 12:39 EST ,
== END | disposition home or self-care (01) ==
LOC: US 09:37
PROVIDERS: PCP Internal Medicine; Referring Provider Internal Medicine; Visit Provider Internal Medicine
DX: R10.11 Right upper quadrant pain (principal)
CPT/HCPCS: 76705

== ENCOUNTER → 2024-04-13 | Outpatient (CLI) | payer SELFPAY ==
[2024-04-13 15:35] LABS: Absolute Lymphocyte Count 1.77 X10^3/uL (0.83-4.51); Absolute Neutrophil Count 4.6 X10^3/uL (2.0-7.7); Basophil# 0.03 X10^3/uL; Basophil% 0.4 % (0-1); Eosinophil# 0.14 X10^3/uL; Hemoglobin 12.3 g/dL (12.0-15.0); Lymphocyte # 1.77 X10^3/ul (0.83-4.51); Lymphocyte % 25.5 % (19-41); Mean Corp Hgb Conc 32.4 g/dL (32-36); Mean Corpuscular Volume 86.6 fL (81-99); Mean Platelet Vol. 10.3 fl (6.2-12.0); Monocyte# 0.39 X10^3/uL; Monocyte% 5.6 % (0-10); NRBC Flagged by Analyzer 0 % (0-5); Neutrophil # 4.58 X10^3/uL (2.7-7.7); Neutrophil % 66.1 % (47-70); Platelet Count 260 K/mm3 (150-450); RBC Distribution Width CV 13.2 % (11.6-14.6); RBC Distribution Width SD 41.3 fl (35.1-43.9); Red Blood Count 4.39 M/mm3 (4.2-5.4); White Blood Count 6.9 K/mm3 (4.4-11.0)
[2024-04-13 16:01] LABS: Erythrocyte Sedimentation Rate < 1 mm/hr (0-30)
[2024-04-13 16:30] LABS: Color, Urine Yellow (Yellow); Glucose, Dipstick Normal (Normal); Ketone-Dipstick Negative (Negative); Leukocyte Esterase-Dipstick Negative /ul (Negative); Nitrite-Dipstick Negative (Negative); Occult Blood-Urine 10 /ul (Negative); Protein-Dipstick Negative (Negative); Urine Bilirubin Dipstick Negative (Negative); Urine Clarity Clear (Clear); Urine Urobilinogen Normal (Normal); Urine pH 6.5 (5.0 - 8.0)
[2024-04-13 16:36] LABS: AST(SGOT) 24 U/L (15-37); Alanine Aminotransfer ALT/SGPT 22 U/L (13-56); Albumin, Serum 3.6 g/dL (3.2-5.0); Alkaline Phosphatase 42 U/L (45-117); Anion Gap 5 (5-15); BUN 15 mg/dL (7-18); BUN/Creat Ratio 17.7 RATIO (10-20); CRP < 2.90 mg/L (0.0-3.0); Calcium,Total 8.8 mg/dL (8.5-10.1); Chloride 108 mmol/L (98-107); Creatinine, Serum 0.85 mg/dL (0.55-1.02); EST Glomerular Filtration Rate 82 mL/min (>60); Est Glom Filt Rate - Afr Amer 99 mL/min (>60); Estradiol 37.9 pg/mL; Free T3 2.1 pg/mL (2.18-3.98); Globulin 3.9 g/dL (2.2-4.2); Glucose 85 mg/dL (74-106); Potassium 3.6 mmol/L (3.5-5.1); Protein, Total 7.5 g/dL (6.4-8.2); Sodium Level 139 mmol/L (136-145); T4 Free Direct 0.76 ng/dL (0.76-1.46); Thyroid Stim Hormone (TSH) 2.46 uIU/mL (0.358-3.74); Uric Acid 3.8 mg/dL (2.6-6.0)
[2024-04-15 12:10] LABS: ANTINUCLEAR ANTIBODIES DIRECT Negative (Negative); PROGESTERONE <0.1 ng/mL (.)
[2024-04-15 14:10] LABS: Thyroglobulin Antibody < 1.0 IU/mL (0.0-0.9); Thyroid Peroxidase AB < 9 IU/mL (0-34)
== END | disposition home or self-care (01) ==
LOC: LAB 14:25
PROVIDERS: PCP Internal Medicine; Referring Provider Family Medicine; Visit Provider Family Medicine
DX: M10.9 Gout, unspecified (principal); E03.9 Hypothyroidism, unspecified; M25.50 Pain in unspecified joint; M79.10 Myalgia, unspecified site; N93.9 Abnormal uterine and vaginal bleeding, unspecified
CPT/HCPCS: 36415; 80048; 80076; 81002; 82670; 83036; 84144; 84439; 84443; 84481; 84550; 85025; 85652; 86038; 86140; 86376; 86800

== ENCOUNTER → 2024-04-13 | Outpatient (CLI) | payer SELFPAY ==
--- NOTE | 2024-04-13 13:18 | VDLE_ITS ---
Reason For Study: BLE Pain RIGHT LEFT CFV is compressible, spontaneous, phasic, CFV is compressible, spontaneous, phasic, competent, and demonstrates normal competent, and demonstrates normal augmentation. augmentation. FV is compressible, spontaneous, phasic, FV is compressible, spontaneous, phasic, competent and demonstrates normal competent and demonstrates normal augmentation. augmentation. POP V is compressible, spontaneous, phasic, POP V is compressible, spontaneous, phasic, competent and demonstrates normal competent and demonstrates normal augmentation. augmentation. T/P Trunk is compressible. T/P Trunk is compressible. PTV is compressible. PTV is compressible. PerV is compressible. LT PerV is compressible. SFJ is competent and measures 0.88 cm. SFJ is competent and measures 0.70 cm. GSV proximal thigh measures 0.32 x 0.31 cm. GSV proximal thigh measures 0.29 x 0.30 cm. GSV at knee measures 0.43 x 0.43 cm. GSV at knee measures 0.38 x 0.41 cm. GSV is competent throughout. GSV above knee is competent. SSV at junction is competent and measures GSV below knee is INCOMPETENT for greater 0.66 cm. than 0.5 seconds. SSV mid calf is INCOMPETENT for greater than SSV at junction is competent and measures 0.5 seconds and measures 0.38 cm 0.32 cm. SSV appears tortuous from ankle to prox calf. SSV proximal calf is competent and measures Procedure 0.23 x 0.23 cm. This is a venous duplex using B-mode, color Perforating vessel mid calf (15cm prox from flow and spectral Doppler. MM) is INCOMPETENT for greater than 0.5 Exam performed in department. seconds and measures 0.23 x 0.22 cm. The exam was diagnostic. VL/Venous Duplex US - Benjy Extrem Interpretation Summary No evidence for acute deep venous thrombosis bilateral lower extremities with p atent and compressible bilateral great saphenous veins. Bilateral calf GSV reflux into br anches. 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 Ordering Physician: Tylor Escobar Referring Physician: Allegra Potts M.D. Performed By: Clinton Lieberman RVT
== END | disposition home or self-care (01) ==
PROVIDERS: PCP Internal Medicine; Referring Provider Surgery Vascular Surgery; Visit Provider Surgery Vascular Surgery
DX: I83.893 Varicose veins of bilateral lower extremities with other complications (principal); I78.1 Nevus, non-neoplastic; I87.1 Compression of vein; M79.605 Pain in left leg
CPT/HCPCS: 93970

== ENCOUNTER → 2024-09-02 | Outpatient (CLI) | payer SELFPAY ==
--- NOTE | 2024-09-02 13:33 | CT_ITS ---
STUDY: CTA CHEST REASON FOR EXAM: Female, 34 years old. CP AND R ARM SWELLING RADIATION DOSAGE (If Supplied By Facility): CTDIvol = ( 9.46 ) mGy, DLP = ( 981.63 ) mGycm TECHNIQUE: The examination was performed with the intravenous administration of Oral and amp; IV Gastrografin and amp; 100mL Isovue-370. Post-processing of the angiographic images was performed, with multiplanar reformation and 3D reconstruction. Individualized dose optimization techniques were used for this CT. COMPARISON: None. FINDINGS: Normal enhancement of the main pulmonary artery and right and left pulmonary arteries. Normal enhancement of the bilateral peripheral pulmonary arteries. There is no demonstrated pulmonary embolism. Normal thoracic aorta and visualized great vessels. There is no demonstrated aortic dissection. Normal heart and pericardium. Normal mediastinum. Normal hilar regions. Normal visualized trachea and bronchi. The lungs are well expanded. Normal pulmonary parenchyma. Normal pleura. Normal chest wall structures. Normal osseous structures. Normal visualized upper abdomen. CT/CTA Chest W/WO Contrast IMPRESSION: Normal CTA chest examination, without a demonstrated pulmonary embolism or arterial dissection. Electronically Signed: Jayce Camp MD at 15:10 [facility] ,
--- NOTE | 2024-09-02 13:33 | CT_ITS ---
STUDY: CT ABDOMEN AND PELVIS WITH CONTRAST REASON FOR EXAM: Female, 34 years old. R SIDED ABD PAIN/ BLOATING RADIATION DOSAGE (If Supplied By Facility): CTDIvol = ( 9.46 ) mGy, DLP = ( 981.63 ) mGycm TECHNIQUE: Transaxial images were obtained from the dome of the diaphragm to the symphysis pubis without oral contrast. Oral and amp; IV Gastrografin and amp; 100mL Isovue-370 was administered. Sagittal and coronal images were reconstructed. Individualized dose optimization techniques were used for this CT. COMPARISON: Comparison is made with prior study dated April 20, 2020. FINDINGS: The visualized lung bases are unremarkable. The visualized portions of the heart are within normal limits. Normal liver. Normal gallbladder and extrahepatic biliary system. Borderline splenomegaly. Normal pancreas. Normal bilateral adrenal glands. Normal right kidney. Normal left kidney. There is a small hiatal hernia. Normal small intestine. Normal colon. The appendix is visualized and appears normal. Normal abdominal aorta. Normal inferior vena cava. Normal retroperitoneum. Normal urinary bladder. Minimal amount of free fluid is seen in the cul-de-sac. This may be related to the patient''s menstrual cycle. There is a small umbilical hernia containing fat. Normal osseous structures. CT/Abdomen/Pelvis WITH Contrast IMPRESSION: Small amount of free fluid is seen in the cul-de-sac. Electronically Signed: Jayce Camp MD at 15:12 EST ,
== END | disposition home or self-care (01) ==
LOC: CT 13:31
PROVIDERS: PCP Family Medicine; Referring Provider Family Medicine; Visit Provider Family Medicine
DX: R10.31 Right lower quadrant pain (principal); R07.9 Chest pain, unspecified; M79.601 Pain in right arm; M79.89 Other specified soft tissue disorders
CPT/HCPCS: 71275; 74177; Q9967

== ENCOUNTER → 2025-02-12 | Outpatient (CLI) | payer SELFPAY ==
[2025-02-12 12:32] LABS: Absolute Lymphocyte Count 1.76 X10^3/uL (0.83-4.51); Absolute Neutrophil Count 3.5 X10^3/uL (2.0-7.7); Basophil# 0.02 X10^3/uL; Basophil% 0.4 % (0-1); Eosinophil# 0.11 X10^3/uL; Eosinophils% 1.9 % (0-5); Hematocrit 39.4 % (37-47); Hemoglobin 13.1 g/dL (12.0-15.0); Lymphocyte # 1.76 X10^3/ul (0.83-4.51); Mean Corp Hgb Conc 33.2 g/dL (32-36); Mean Corpuscular Hgb 28.3 pg (27.0-32.0); Mean Corpuscular Volume 85.1 fL (81-99); Mean Platelet Vol. 10.1 fl (6.2-12.0); Monocyte# 0.28 X10^3/uL; Monocyte% 4.9 % (0-10); NRBC Flagged by Analyzer 0 % (0-5); Neutrophil # 3.49 X10^3/uL (2.7-7.7); Neutrophil % 61.6 % (47-70); Platelet Count 241 K/mm3 (150-450); RBC Distribution Width CV 13.2 % (11.6-14.6); RBC Distribution Width SD 41.1 fl (35.1-43.9); Red Blood Count 4.63 M/mm3 (4.2-5.4); White Blood Count 5.7 K/mm3 (4.4-11.0)
[2025-02-12 13:50] LABS: ALB/GLOB Ratio 1.5 RATIO (0.9-2.4); AST(SGOT) 24 U/L (<=31); Alanine Aminotransfer ALT/SGPT 20 U/L (<=34); Albumin, Serum 4.6 g/dL (3.5-5.0); Alkaline Phosphatase 43 U/L (35-104); Anion Gap 10 (5-15); BUN 10 mg/dL (4-19); BUN/Creat Ratio 13.1 RATIO (10-20); Calcium,Total 9.2 mg/dL (7.6-11.0); Carbon Dioxide 24.2 mmol/L (21.0-32.0); Chloride 103 mmol/L (98-108); Creatinine, Serum 0.76 mg/dL (0.70-1.20); EST Glomerular Filtration Rate 106 (>60); Ferritin 27 ng/mL (22-378); Free T3 2.8 pg/mL (2.18-3.98); Globulin 3.1 g/dL (2.2-4.2); Glucose 93 mg/dL (70-99); Iron 106 ug/dL (50-170); Magnesium 1.8 mg/dL (1.5-2.2); Potassium 3.6 mmol/L (3.3-5.1); Protein, Total 7.7 g/dL (5.9-8.4); Sodium Level 137 mmol/L (133-145); Total Bilirubin 0.52 mg/dL (0.00-1.30)
[2025-02-14 06:38] LABS: Thyroid Peroxidase AB < 9 IU/mL (0-34)
== END | disposition home or self-care (01) ==
LOC: LAB 11:32
PROVIDERS: PCP Family Medicine; Referring Provider Family Medicine; Visit Provider Family Medicine
DX: E03.9 Hypothyroidism, unspecified (principal); R53.83 Other fatigue; N93.8 Other specified abnormal uterine and vaginal bleeding
CPT/HCPCS: 36415; 80053; 82728; 83540; 83735; 84439; 84443; 84481; 85025; 86376

== ENCOUNTER → 2025-05-17 | Outpatient (CLI) | payer SELFPAY ==
[2025-05-17 12:50] LABS: CORTISOL AM 12.20 ug/dL (6.02-18.40); Free T3 2.8 pg/mL (2.18-3.98)
[2025-05-18 08:08] LABS: PROGESTERONE 0.4 ng/mL (.)
== END | disposition home or self-care (01) ==
LOC: MTLAB 09:47
PROVIDERS: PCP Family Medicine; Referring Provider Family Medicine; Visit Provider Family Medicine
DX: N93.8 Other specified abnormal uterine and vaginal bleeding (principal); E03.9 Hypothyroidism, unspecified; Z51.81 Encounter for therapeutic drug level monitoring
CPT/HCPCS: 36415; 82088; 82533; 82670; 84144; 84402; 84403; 84439; 84443; 84481; 86376; 86800

== ENCOUNTER → 2025-06-10 | Outpatient (CLI) | payer SELFPAY ==
--- NOTE | 2025-06-10 13:00 | US_ITS ---
PROCEDURE: THYROID 06/10/2025 REASON FOR EXAM: THYROMEGALY TECHNIQUE: Procedure Code: USTHY Modality: US Procedure: THYROID COMPARISON: None FINDINGS: Right thyroid lobe size: 4.2 cm x 1.3 cm x 1.8 cm Left thyroid lobe size: 4.5 cm 1.3 cm 1.6 cm Isthmus: 0.3 cm Background parenchymal echotexture is homogeneous. US/Thyroid IMPRESSION: Normal thyroid sonogram. RECOMMENDATION: Based on most suspicious nodule. Nodule size = largest diameter Only evaluate nodule if =>5 mm. Growth > 20% in 2 dimensions = worsening. Follow up to 4 nodules. Recommend biopsy for no more than 2 nodules. Reading [facility]
== END | disposition home or self-care (01) ==
LOC: OPUS 12:58
PROVIDERS: PCP Family Medicine; Referring Provider Family Medicine; Visit Provider Family Medicine
DX: E01.0 Iodine-deficiency related diffuse (endemic) goiter (principal)
CPT/HCPCS: 76536

== ENCOUNTER → 2025-06-10 | Outpatient (CLI) | payer SELFPAY ==
[2025-06-10 18:19] LABS: Free T3 2.6 pg/mL (2.18-3.98)
== END | disposition home or self-care (01) ==
LOC: MTLAB 13:58
PROVIDERS: PCP Family Medicine; Referring Provider Family Medicine; Visit Provider Family Medicine
DX: E03.9 Hypothyroidism, unspecified (principal)
CPT/HCPCS: 36415; 84439; 84443; 84481

== ENCOUNTER → 2025-07-22 | Outpatient (CLI) | payer SELFPAY | END | disposition home or self-care (01) | LOC: LABSPEC 16:25 | PROVIDERS: PCP Family Medicine; Visit Provider Obstetrics & Gynecology Gynecology | DX: F41.0 Panic disorder [episodic paroxysmal anxiety] (principal); F39 Unspecified mood [affective] disorder; R45.86 Emotional lability | CPT/HCPCS: 82384 ==

== ENCOUNTER → 2025-07-30 | Outpatient (CLI) | payer SELFPAY ==
[2025-07-30 12:23] LABS: Hematocrit 39.6 % (37-47); Hemoglobin 13.4 g/dL (12.0-15.0); Mean Corp Hgb Conc 33.8 g/dL (32-36); Mean Corpuscular Volume 84.4 fL (81-99); Mean Platelet Vol. 10.5 fl (6.2-12.0); Platelet Count 240 K/mm3 (150-450); RBC Distribution Width CV 13.0 % (11.6-14.6); RBC Distribution Width SD 39.7 fl (35.1-43.9); Red Blood Count 4.69 M/mm3 (4.2-5.4); White Blood Count 5.6 K/mm3 (4.4-11.0)
[2025-07-30 13:26] LABS: Follicle Stimulating Hormone 3.4 mIU/mL; Glucose 86 mg/dL (70-99); Vitamin D,25 Hydroxy 54.7 ng/mL (30-100)
[2025-07-31 04:07] LABS: PROGESTERONE 15.2 ng/mL (.)
[2025-08-03 17:08] LABS: Dopamine, Pl <10.0 pg/mL (0.0-36.7); Epinephrine, Pl 17.2 pg/mL (0.0-55.4); Norepinephrine, Pl 348 pg/mL (115-524)
== END | disposition home or self-care (01) ==
LOC: MTLAB 09:29
PROVIDERS: PCP Family Medicine; Referring Provider Obstetrics & Gynecology Gynecology; Visit Provider Obstetrics & Gynecology Gynecology
DX: F39 Unspecified mood [affective] disorder (principal); N92.0 Excessive and frequent menstruation with regular cycle; F41.0 Panic disorder [episodic paroxysmal anxiety]; R45.86 Emotional lability; R53.83 Other fatigue; R00.2 Palpitations
CPT/HCPCS: 36415; 82306; 82384; 82670; 82947; 83001; 83002; 84144; 84439; 84443; 85027